=== PATIENT | male | born 1950 | race Caucasian/White ===

== ENCOUNTER → 2019-11-29 16:08 | Outpatient (CLI) | payer MEDICARE, SELFPAY ==
[2019-11-29 17:43] LABS: Absolute Lymphocyte Count 2.48 X10^3/uL (0.83-4.51); Absolute Neutrophil Count 3.7 X10^3/uL (2.0-7.7); Basophil# 0.03 X10^3/uL; Basophil% 0.4 % (0-1); Eosinophil# 0.23 X10^3/uL; Eosinophils% 3.3 % (0-5); Hematocrit 39.7 % (40-54); Lymphocyte # 2.48 X10^3/ul (4.0); Lymphocyte % 35.3 % (19-41); Mean Corp Hgb Conc 32.7 g/dL (32-36); Mean Corpuscular Hgb 28.2 pg (27.0-32.0); Mean Corpuscular Volume 86.1 fL (80-94); Mean Platelet Vol. 11.1 fl (6.2-12.0); Monocyte# 0.56 X10^3/uL; NRBC Flagged by Analyzer 0 % (0-5); Neutrophil % 52.7 % (47-70); Platelet Count 128 K/mm3 (150-450); RBC Distribution Width CV 13.2 % (11.6-14.6); RBC Distribution Width SD 41.2 fl (35.1-43.9); Red Blood Count 4.61 M/mm3 (4.6-6.2)
[2019-11-29 17:56] LABS: Hemoglobin A1c 7.7 % (4.2-6.3); Vitamin B12 712 pg/mL (211-911)
[2019-11-29 18:03] LABS: ALB/GLOB Ratio 1.1 RATIO (0.9-2.4); AST(SGOT) 18 U/L (15-37); Alanine Aminotransfer ALT/SGPT 29 U/L (16-61); Albumin, Serum 3.8 g/dL (3.2-5.0); Alkaline Phosphatase 80 U/L (45-117); Anion Gap 2 (5-15); BUN 18 mg/dL (7-18); BUN/Creat Ratio 15.1 RATIO (10-20); Calcium,Total 8.9 mg/dL (8.5-10.1); Chloride 107 mmol/L (98-107); Creatinine, Serum 1.19 mg/dL (0.70-1.30); EST Glomerular Filtration Rate 64 mL/min (>60); Est Glom Filt Rate - Afr Amer 78 mL/min (>60); Ferritin 142 ng/mL (26-388); Globulin 3.5 g/dL (2.2-4.2); Glucose 171 mg/dL (74-106); Potassium 4.3 mmol/L (3.5-5.1); Protein, Total 7.3 g/dL (6.4-8.2); Sodium Level 137 mmol/L (136-145); Thyroid Stim Hormone (TSH) 2.13 uIU/mL (0.358-3.74)
== END ==
PROVIDERS: PCP Family Medicine; Referring Provider Family Medicine; Visit Provider Family Medicine
DX: E11.9 Type 2 diabetes mellitus without complications (principal); I38 Endocarditis, valve unspecified; D64.9 Anemia, unspecified
CPT/HCPCS: 36415; 80053; 82607; 82728; 83036; 84443; 85025

== ENCOUNTER → 2019-12-11 12:32 | Outpatient (CLI) | payer MEDICARE, SELFPAY ==
--- NOTE | 2019-12-11 12:48 | ART_ITS ---
Reason For Study: Atherosclerosis Procedure A bilateral lower extremity continuous wave Doppler with analog waveform analysis and ankle brachial indexes. Left Segmental Pressures Left brachial= 149mmHg. Left posterior tibial artery = 161mmHg. Left dorsalis pedis artery = 149mmHg. Left digit = 129 mmHg. The left dorsalis pedis waveforms are triphasic. The left posterior tibial artery waveforms are triphasic. Right Segmental Pressures Right brachial= 144mmHg. Right posterior tibial artery = 156mmHg. Right dorsalis pedis artery = 146mmHg. Right digit = 112 mmHg. The right dorsalis pedis waveforms are triphasic. The right posterior tibial artery waveforms are triphasic. Indices The right ankle brachial index by the dorsalis pedis is 0.98. The right ankle brachial index by the posterior tibial artery is 1.05. The right digital-brachial index is 0.75. The left ankle brachial index by the dorsalis pedis is 1.00. The left ankle brachial index by the posterior tibial artery is 1.08. The left digital-brachial index is 0.87. Interpretation Summary Triphasic Doppler waveforms are noted at ankle level bilaterally. Pulse-volume recordings appear satisfactory at ankle and digital levels bilaterally. Resting ankle-brachial indices are normal bilaterally. Digital-brachial indices are normal bilaterally. The patient was exercised for 5 minutes at 1.5 mph and a 5% grade. One minute following cessation of exercise, the right ankle pressure decreased slightly, but was noted to augment 3 minutes following cessation of exercise. On the left, ankle pressures augment 1 and 3 minutes following cessation of exercise, which is a normal physiological result. There is no evidence of significant arterial occlusive disease in the lower extremities bilaterally. Ordering Physician: Hao Woods Referring Physician: Hao Woods Performed By: Lexie Vo RVT
== END ==
PROVIDERS: PCP Family Medicine; Referring Provider Family Medicine; Visit Provider Family Medicine
DX: I73.9 Peripheral vascular disease, unspecified (principal)
CPT/HCPCS: 93922

== ENCOUNTER 2022-01-01 11:54 | Outpatient (CLI) | payer MEDICARE, SELFPAY ==
[2022-01-01 15:42] LABS: ALB/GLOB Ratio 1.2 RATIO (0.9-2.4); AST(SGOT) 20 U/L (15-37); Alanine Aminotransfer ALT/SGPT 22 U/L (16-61); Albumin, Serum 3.9 g/dL (3.2-5.0); Alkaline Phosphatase 69 U/L (45-117); Anion Gap 4 (5-15); BUN 29 mg/dL (7-18); BUN/Creat Ratio 26.4 RATIO (10-20); Calcium,Total 9.3 mg/dL (8.5-10.1); Chloride 106 mmol/L (98-107); Cholesterol 292 mg/dL (200); EST Glomerular Filtration Rate 70 mL/min (>60); Est Glom Filt Rate - Afr Amer 85 mL/min (>60); Globulin 3.3 g/dL (2.2-4.2); Glucose 134 mg/dL (74-106); High Density Lipoprotein 49 mg/dL; Potassium 5.2 mmol/L (3.5-5.1); Protein, Total 7.2 g/dL (6.4-8.2); Sodium Level 137 mmol/L (136-145); Triglycerides 199 mg/dL; Very Low Density Lipoprotein 40 mg/dL (5-40)
[2022-01-01 15:44] LABS: Hemoglobin A1c 8.6 % (3.8-5.6)
== END 2022-01-01 23:59 | disposition home or self-care (01) ==
LOC: MFPLAB 11:57
PROVIDERS: PCP Family Medicine; Referring Provider Family Medicine; Visit Provider Family Medicine
DX: E11.9 Type 2 diabetes mellitus without complications (principal); I70.90 Unspecified atherosclerosis
CPT/HCPCS: 36415; 80053; 80061; 83036

== ENCOUNTER → 2022-07-02 | Outpatient (CLI) | payer MEDICARE, SELFPAY ==
--- NOTE | 2022-07-02 16:13 | STRESSREP ---
Stress Test Report Exercise myocardial perfusion stress test. 71-year-old man with a history of coronary disease aortic valve replacement mitral valve repair. Stress protocol: Resting EKG demonstrates normal sinus rhythm with a rate of 63 bpm normal intervals are noted resting blood pressure is 142/88 mmHg. The patient exercised according to regular Andre protocol for 2 minutes and 43 seconds attaining a maximal heart rate of 129 bpm and 87% of max impacted heart rate the maximum workload was 4.6 metabolic equivalents. Patient maintained sinus rhythm throughout the recording. At rest there were no ST or T wave changes noted suggest ischemia and at peak exercise upsloping ST changes only were noted with did not meet the criteria for ischemia. The test was terminated due to fatigue. Myocardial perfusion protocol. 11.5 mCi of technetium 99m sestamibi was injected at rest. The patient exercised according to the regular Andre protocol and at peak exercise 34.2 mCi of technetium 99m sestamibi was injected stress images were obtained stress and rest images were reconstructed and compared in the short axis vertical long and horizontal long axis. Gated images were also obtained.
== END | disposition home or self-care (01) ==
LOC: CVS 06:53
PROVIDERS: PCP Family Medicine; Referring Provider Nurse Practitioner Family; Visit Provider Nurse Practitioner Family
DX: I25.2 Old myocardial infarction (principal); Z95.1 Presence of aortocoronary bypass graft; Z95.4 Presence of other heart-valve replacement; Z98.890 Other specified postprocedural states
CPT/HCPCS: 78452; 93017; A9500

== ENCOUNTER → 2022-08-07 | Outpatient (CLI) | payer MEDICARE, SELFPAY ==
[2022-08-07 12:32] LABS: Bacteria 0 SEEN /hpf (None Seen); Mucous, Urine 0 SEEN /hpf (<or=2+); Red Blood Cells-Urine 0 SEEN /hpf (0-5); Squamous Epithelial Cells - UA 0 SEEN /hpf (0-5); White Blood Cells 0 SEEN /hpf (0-5)
[2022-08-07 15:43] LABS: Absolute Lymphocyte Count 2.14 X10^3/uL (0.83-4.51); Absolute Neutrophil Count 4.6 X10^3/uL (2.0-7.7); Basophil# 0.04 X10^3/uL; Basophil% 0.5 % (0-1); Eosinophil# 0.19 X10^3/uL; Eosinophils% 2.5 % (0-5); Hematocrit 41.7 % (40-54); Hemoglobin 13.9 g/dL (13.0-16.5); Lymphocyte # 2.14 X10^3/ul (0.83-4.51); Lymphocyte % 28.6 % (19-41); Mean Corp Hgb Conc 33.3 g/dL (32-36); Mean Corpuscular Hgb 29.3 pg (27.0-32.0); Mean Corpuscular Volume 87.8 fL (80-94); Mean Platelet Vol. 11.4 fl (6.2-12.0); Monocyte% 6.7 % (0-10); NRBC Flagged by Analyzer 0 % (0-5); Neutrophil # 4.57 X10^3/uL (2.7-7.7); Neutrophil % 61.3 % (47-70); Platelet Count 145 K/mm3 (150-450); RBC Distribution Width CV 13.8 % (11.6-14.6); RBC Distribution Width SD 44.1 fl (35.1-43.9); Red Blood Count 4.75 M/mm3 (4.6-6.2); White Blood Count 7.5 K/mm3 (4.4-11.0)
[2022-08-07 16:03] LABS: Color, Urine Yellow (Yellow); Glucose, Dipstick Normal (Normal); Ketone-Dipstick Negative (Negative); Leukocyte Esterase-Dipstick Negative /ul (Negative); Nitrite-Dipstick Negative (Negative); Occult Blood-Urine Negative /ul (Negative); Protein-Dipstick 30 mg/dl (Negative); Urine Bilirubin Dipstick Negative (Negative); Urine Clarity Clear (Clear); Urine Urobilinogen Normal (Normal)
[2022-08-07 16:23] LABS: Transitional Epithelial - Ur 0-5 SEEN /hpf (0-5)
[2022-08-07 17:53] LABS: ALB/GLOB Ratio 1.2 RATIO (0.9-2.4); AST(SGOT) 17 U/L (15-37); Alanine Aminotransfer ALT/SGPT 23 U/L (16-61); Albumin, Serum 4.3 g/dL (3.2-5.0); Alkaline Phosphatase 75 U/L (45-117); Anion Gap 6 (5-15); BUN 25 mg/dL (7-18); BUN/Creat Ratio 18.4 RATIO (10-20); Calcium,Total 9.9 mg/dL (8.5-10.1); Chloride 106 mmol/L (98-107); Creatinine, Serum 1.36 mg/dL (0.70-1.30); EST Glomerular Filtration Rate 55 mL/min (>60); Est Glom Filt Rate - Afr Amer 66 mL/min (>60); Globulin 3.6 g/dL (2.2-4.2); Glucose 169 mg/dL (74-106); Potassium 5.1 mmol/L (3.5-5.1); Protein, Total 7.9 g/dL (6.4-8.2); Sodium Level 138 mmol/L (136-145)
== END | disposition home or self-care (01) ==
LOC: MFPLAB 12:26
PROVIDERS: PCP Family Medicine; Referring Provider Family Medicine; Visit Provider Family Medicine
DX: E11.29 Type 2 diabetes mellitus with other diabetic kidney complication (principal); I38 Endocarditis, valve unspecified
CPT/HCPCS: 36415; 80053; 81001; 85025

== ENCOUNTER → 2022-12-11 | Outpatient (CLI) | payer MEDICARE, SELFPAY ==
--- NOTE | 2022-12-11 11:00 | RAD_ITS ---
STUDY: X-RAY CHEST REASON FOR EXAM: Male, 72 years old. produtive cough TECHNIQUE: PA and lateral views of the chest. COMPARISON: None. FINDINGS: The lungs are clear and expanded. There is no demonstrated pleural abnormality. Normal size heart. Sternal wires and prostatic cardiac valves. Normal visualized pulmonary arteries. There is atherosclerotic calcification of the aortic arch with tortuosity. There is demineralization of the osseous structures. Normal visualized ribs, clavicles, and shoulders. There is no demonstrated abnormality of the visualized soft tissue structures of the upper abdomen. RAD/Chest PA and Lateral IMPRESSION: No acute cardiopulmonary process. Electronically Signed: Gulshan Hutson (Brooks), at 18:31 EST ,
== END | disposition home or self-care (01) ==
LOC: MTRAD 11:00
PROVIDERS: PCP Family Medicine; Referring Provider Family Medicine; Visit Provider Family Medicine
DX: R05.8 Other specified cough (principal)
CPT/HCPCS: 71046

== ENCOUNTER → 2023-01-14 | Outpatient (CLI) | payer MEDICARE, SELFPAY ==
[2023-01-14 12:38] LABS: Erythrocyte Sedimentation Rate 18 mm/hr (0-20)
[2023-01-14 12:42] LABS: Absolute Lymphocyte Count 1.72 X10^3/uL (0.83-4.51); Absolute Neutrophil Count 5.1 X10^3/uL (2.0-7.7); Basophil# 0.03 X10^3/uL; Basophil% 0.4 % (0-1); Eosinophil# 0.22 X10^3/uL; Eosinophils% 2.9 % (0-5); Hematocrit 36.9 % (40-54); Hemoglobin 12.2 g/dL (13.0-16.5); Lymphocyte # 1.72 X10^3/ul (0.83-4.51); Lymphocyte % 22.4 % (19-41); Mean Corp Hgb Conc 33.1 g/dL (32-36); Mean Corpuscular Volume 87.6 fL (80-94); Mean Platelet Vol. 11.4 fl (6.2-12.0); Monocyte# 0.57 X10^3/uL; Monocyte% 7.4 % (0-10); NRBC Flagged by Analyzer 0 % (0-5); Neutrophil # 5.11 X10^3/uL (2.7-7.7); Neutrophil % 66.5 % (47-70); Platelet Count 128 K/mm3 (150-450); RBC Distribution Width CV 13.7 % (11.6-14.6); RBC Distribution Width SD 43.8 fl (35.1-43.9); Red Blood Count 4.21 M/mm3 (4.6-6.2); White Blood Count 7.7 K/mm3 (4.4-11.0)
[2023-01-14 13:11] LABS: AST(SGOT) 13 U/L (15-37); Alanine Aminotransfer ALT/SGPT 19 U/L (16-61); Albumin, Serum 3.7 g/dL (3.2-5.0); Alkaline Phosphatase 92 U/L (45-117); Anion Gap 6 (5-15); BUN 20 mg/dL (7-18); CRP < 2.90 mg/L (0.0-3.0); Calcium,Total 9.7 mg/dL (8.5-10.1); Chloride 100 mmol/L (98-107); Creatinine, Serum 1.33 mg/dL (0.70-1.30); EST Glomerular Filtration Rate 56 mL/min (>60); Est Glom Filt Rate - Afr Amer 68 mL/min (>60); Globulin 3.6 g/dL (2.2-4.2); Glucose 309 mg/dL (74-106); Potassium 4.9 mmol/L (3.5-5.1); Protein, Total 7.3 g/dL (6.4-8.2); Sodium Level 134 mmol/L (136-145)
[2023-01-15 13:13] LABS: ANTINUCLEAR ANTIBODIES DIRECT Negative (Negative)
[2023-01-16 15:07] LABS: QNTFERON TB Mitogen Value > 10.00 IU/mL (.); QNTFERON TB Nil Value 0 IU/mL (.); QNTFERON TB1+ Ag Value 0.03 IU/mL (.); QNTFERON TB2+ Ag Value 0.02 IU/mL (.)
[2023-01-16 16:06] LABS: QNTIFERON TB Positive Criteria Negative (Negative)
== END | disposition home or self-care (01) ==
LOC: MFPLAB 10:13
PROVIDERS: PCP Family Medicine; Referring Provider Family Medicine; Visit Provider Family Medicine
DX: R04.2 Hemoptysis (principal); R29.2 Abnormal reflex
CPT/HCPCS: 36415; 80053; 85025; 85652; 86038; 86140; 86225; 86235; 86480; 87015; 87070; 87116; 87205; 87206

== ENCOUNTER → 2023-01-29 | Outpatient (CLI) | payer MEDICARE, SELFPAY ==
--- NOTE | 2023-01-29 12:54 | ECHOD_ITS ---
Reason For Study: AORTIC STENOSIS Procedure This was a 2D Doppler, Color Flow transthoracic echocardiogram. Exam performed in department. Left Ventricle Normal LV size. Mild concentric left ventricular hypertrophy. The left ventricular ejection fraction is 65 %. Diastolic function is indeterminate. Right Ventricle Normal right ventricle. Atria The left atrium is severely enlarged. Normal right atrium. Mitral Valve Mitral valve annuloplasty repair. Trivial mitral valve insufficiency. Tricuspid Valve Trivial tricuspid valve insufficiency. Unable to estimate RV systolic pressure due to insufficient tricuspid regurgitant envelope. Aortic Valve Bioprosthetic Aortic valve. Mean peak gradient 30.8 mm Hg. Moderate stenosis. Pulmonic Valve The pulmonic valve is not well visualized. Great Vessels Normal sized aortic root. Pericardium/Pleural No pericardial effusion. MMode/2D Measurements & Calculations LVIDd: 4.2 cm IVSd: 1.3 cm LVOT diam: 2.2 cm LVIDs: 2.8 cm LVPWd: 1.2 cm LVOT area: 3.7 cm2 FS: 33.2 % Ao root diam: 3.5 cm LAV(MOD-bp): 61.4 ml LVAd ap4: 25.3 cm2 LAV(MOD-bp) Indexed: 29.6 ml/m2 LVLd ap4: 7.3 cm LAV(MOD-sp2): 58.0 ml EDV(MOD-sp4): 75.6 ml LAV(MOD-sp4): 56.7 ml EDV(sp4-el): 74.6 ml LVAs ap4: 12.8 cm2 LVLs ap4: 6.0 cm ESV(MOD-sp4): 23.9 ml ESV(sp4-el): 23.1 ml EF(MOD-sp4): 68.4 % EF(sp4-el): 69.0 % SV(MOD-sp4): 51.7 ml SV(sp4-el): 51.5 ml LA A4 area: 20.3 cm2 LA dimension(2D): 4.5 cm RA A4 area: 20.4 cm2 Time Measurements MV dec time: 0.30 sec Doppler Measurements & Calculations MV E max brad: 120.0 cm/sec Lat Peak E' Brad: 7.8 cm/sec Med Peak E' Brad: 7.7 cm/sec MV A max brad: 79.4 cm/sec E/E' lat: 15.4 E/E' med: 15.6 MV E/A: 1.5 MV V2 max: 136.9 cm/sec Ao V2 max: 359.6 cm/sec MV max P.5 mmHg MV dec slope: 397.9 cm/sec2 Ao max P.7 mmHg MV V2 mean: 87.8 cm/sec Ao V2 mean: 260.8 cm/sec MV mean P.4 mmHg Ao mean P.8 mmHg MV V2 VTI: 46.1 cm Ao V2 VTI: 71.1 cm AV (velocity ratio): 0.41 MVA(VTI): 2.3 cm2 NEGRA(I,D): 1.5 cm2 NEGRA(V,D): 1.3 cm2 LV V1 max: 128.2 cm/sec SV(LVOT): 106.1 ml PA V2 max: 90.2 cm/sec LV V1 max P.7 mmHg PA V2 mean: 61.9 cm/sec LV V1 mean P.0 mmHg LV V1 mean: 75.4 cm/sec LV V1 VTI: 28.9 cm ECHO/Echo Complete Interpretation Summary Mild concentric left ventricular hypertrophy. Diastolic function is indeterminate. The left atrium is severely enlarged. Bioprosthetic Aortic valve not well visualized. Mean peak gradient 30.8 mm Hg. Moderate stenosis. Ordering Physician: Hao Woods Referring Physician: Hao Woods Performed By: Alondra Moore RCS
--- NOTE | 2023-01-29 13:27 | CT_ITS ---
ACR Level 3 findings have been noted. An addendum which confirms receipt of the report will follow. EXAM: CT CHEST WITHOUT INTRAVENOUS CONTRAST CLINICAL INDICATION: productive sputum w/ hemoptysis TECHNIQUE: Helically acquired images were obtained of the chest without intravenous contrast. CTDIvol = ( 8.89 ) mGy, DLP = ( 335.84 ) mGycm This CT exam was performed using one or more of the following dose reduction techniques: automated exposure control, adjustment of the mA and/or kV according to patient size, and/or use of iterative reconstruction technique. This report was created using [employer] report [email or web address] technology. COMPARISON: None. FINDINGS: LUNGS AND PLEURAL SPACES: 1.2 cm cavitary lesion at the posterior aspect of the left upper lobe. Spiculated rounded mass at the nearby left upper lobe measuring 1.2 cm. No other pulmonary lesions or significant airspace disease. No pleural effusion or pneumothorax. Background of mild centrilobular emphysema. Couple of small calcified granulomas at the medial aspect of the right upper lobe. HEART: Multivessel calcific coronary arteriolosclerosis status post CABG. No cardiomegaly or pleural effusion. No aortic aneurysm. No other cardiomediastinal or hilar abnormalities. MEDIASTINUM: See above. THYROID: Unremarkable. No thyroid lesions. BONES/JOINTS: Degenerative changes of the spine. No unusual lytic or sclerotic lesions of bone. VASCULATURE: See above. GALLBLADDER AND BILE DUCTS: Cholelithiasis although the gallbladder is incompletely imaged. No definite acute cholecystitis. Small calcified granuloma of the spleen. OTHER FINDINGS: No other upper abdominal abnormalities. CT/Chest without Contrast IMPRESSION: 1. 1.2 cm cavitary lesion at the posterior aspect of the left upper lobe. Favor infectious or inflammatory etiology. TB is not excluded. 2. Spiculated rounded mass at the nearby left upper lobe measuring 1.2 cm. Tumor is not excluded. Consider PET/CT for investigation. Alternatively this could also represent a focus of infection. Electronically Signed: Raciel Gold MD at 2:57 EDT ,
== END | disposition home or self-care (01) ==
LOC: CVS 12:52
PROVIDERS: PCP Family Medicine; Referring Provider Family Medicine; Visit Provider Family Medicine
DX: I35.0 Nonrheumatic aortic (valve) stenosis (principal); R05.8 Other specified cough; R06.02 Shortness of breath
CPT/HCPCS: 71250; 93306

== ENCOUNTER → 2023-02-10 | Outpatient (CLI) | payer MEDICARE, SELFPAY ==
--- NOTE | 2023-02-10 14:24 | RAD_ITS ---
STUDY: X-RAY CHEST REASON FOR EXAM: Male, 72 years old. COUGH TECHNIQUE: Frontal and lateral views of the chest. COMPARISON: December 11, 2022. FINDINGS: There is mild left upper lung increased opacity with infiltrate and/or mass. There is no demonstrated pleural abnormality. Sternal cerclage wires are present from a prior sternotomy. There is valve replacement. Normal mediastinum and dima. Normal visualized pulmonary arteries. Normal visualized aortic arch and descending thoracic aorta. There are diffuse degenerative changes of the visualized thoracic spine. Stable healed right fifth rib fracture. There is no demonstrated abnormality of the visualized soft tissue structures of the upper abdomen. RAD/Chest PA and Lateral IMPRESSION: Left upper lung infiltrate and/or mass. Electronically Signed: Terrell Frias MD at 23:53 EDT ,
[2023-02-10 16:48] LABS: Amylase 78 U/L (25-115); Lipase 54 U/L (13-75); PSA,Total - Annual Screen 1.98 ng/mL (0.00-4.00)
== END | disposition home or self-care (01) ==
LOC: MTLAB 14:21
PROVIDERS: PCP Family Medicine; Referring Provider Internal Medicine Pulmonary Disease; Visit Provider Internal Medicine Pulmonary Disease
DX: R05.9 Cough, unspecified (principal)
CPT/HCPCS: 36415; 71046; 82150; 83690; 84153; 87385; G0103

== ENCOUNTER → 2023-02-13 | Outpatient (CLI) | payer MEDICARE, SELFPAY | END | disposition home or self-care (01) | LOC: LABSPEC 10:59 | PROVIDERS: PCP Family Medicine; Referring Provider Internal Medicine Pulmonary Disease; Visit Provider Internal Medicine Pulmonary Disease | DX: R05.9 Cough, unspecified (principal) | CPT/HCPCS: 87015; 87070; 87116; 87205; 87206 ==

== ENCOUNTER → 2023-02-25 | Outpatient (CLI) | payer MEDICARE, SELFPAY ==
--- NOTE | 2023-02-25 12:53 | RAD_ITS ---
STUDY: X-RAY CHEST REASON FOR EXAM: Male, 72 years old. Solitary pulmonary nodule TECHNIQUE: PA and lateral views of the chest. COMPARISON: February 10, 2023 FINDINGS: There is stable mild left upper lung increased opacity. There is no demonstrated pleural abnormality. Sternal cerclage wires and vascular clips are present from a prior sternotomy and coronary artery bypass graft procedure (CABG). There is valve replacement. Normal mediastinum and dima. Normal visualized pulmonary arteries. Normal visualized aortic arch and descending thoracic aorta. Normal visualized thoracic spine. Normal visualized ribs, clavicles, and shoulders. There is no demonstrated abnormality of the visualized soft tissue structures of the upper abdomen. RAD/Chest PA and Lateral IMPRESSION: Stable left upper lobe infiltrate and/or mass. Consider bronchoscopy and/or PET/CT for further evaluation. Electronically Signed: Terrell Frias MD at 22:19 EDT ,
== END | disposition home or self-care (01) ==
LOC: MTRAD 12:52
PROVIDERS: PCP Family Medicine; Referring Provider Internal Medicine Pulmonary Disease; Visit Provider Internal Medicine Pulmonary Disease
DX: R91.1 Solitary pulmonary nodule (principal)
CPT/HCPCS: 71046

== ENCOUNTER → 2023-03-03 | Outpatient (CLI) | payer MEDICARE, SELFPAY ==
--- NOTE | 2023-03-03 | SPU_PTH ---
PATIENT: SILVINA HORVATH LOC: LAB U#:[id number] AGE/SX: 72/M ROOM: RE03/03/[address]: Dr. Aneesh Alaniz MD : 1950 BED: DIS: 03/03/2023 SPEC #: [id number] RECD: 03/04/23 09:33 STATUS: ANNIE RETee #: [id number] HENRY: 03/03/23 00:[address]: Aneesh Alaniz V DEPT: CYTOLOGY RECD BY: Amberly Hay ENTERED: 03/04/23 09:34 SP TYPE: Sputum Cy OTHR DR: Dr. Hao Woods MD Tissues: Sputum Procedures: Pap Stain (control) Special Stain Group II Special Stain Group I AFB Stain (control) Cytospin Fluid HEADER OPERATION: Not noted PRE-OP DIAGNOSIS: Hematemesis, Lung disorder TISSUE SUBMITTED: Sputum for cytology DIAGNOSIS CYTOLOGY Sputum for cytology (cytospin and smears): Negative for malignant cells. See comment. SJ:alfred 03/04/2023 COMMENT Special stain for acid fast bacilli is negative for organisms; matched control is appropriate. CYTOLOGY STUDY Slides are reviewed. CYTOLOGY GROSS Received is 1 ml of red cloudy fluid labeled with the patient's name and and designated per the requisition as sputum. Submitted for cytology preparation. / alfred 03/03/2023 TC:5 CPT: 74674, 71858
== END | disposition home or self-care (01) ==
LOC: LAB 10:10
PROVIDERS: PCP Family Medicine; Referring Provider Internal Medicine Pulmonary Disease; Visit Provider Internal Medicine Pulmonary Disease
DX: R04.2 Hemoptysis (principal); J98.4 Other disorders of lung
CPT/HCPCS: 87070; 87205; 88108; 88312; 88313

== ENCOUNTER → 2023-03-16 | Outpatient (CLI) | payer MEDICARE, SELFPAY ==
[2023-03-16 15:23] LABS: Absolute Lymphocyte Count 2.25 X10^3/uL (0.83-4.51); Absolute Neutrophil Count 7.8 X10^3/uL (2.0-7.7); Basophil# 0.05 X10^3/uL; Basophil% 0.4 % (0-1); Eosinophil# 0.35 X10^3/uL; Eosinophils% 3.1 % (0-5); Hematocrit 36.7 % (40-54); Hemoglobin 11.4 g/dL (13.0-16.5); Lymphocyte # 2.25 X10^3/ul (0.83-4.51); Lymphocyte % 19.9 % (19-41); Mean Corp Hgb Conc 31.1 g/dL (32-36); Mean Corpuscular Hgb 27.3 pg (27.0-32.0); Mean Platelet Vol. 10.1 fl (6.2-12.0); Monocyte# 0.81 X10^3/uL; Monocyte% 7.2 % (0-10); NRBC Flagged by Analyzer 0 % (0-5); Neutrophil # 7.79 X10^3/uL (2.7-7.7); Neutrophil % 68.9 % (47-70); Platelet Count 193 K/mm3 (150-450); RBC Distribution Width CV 14.1 % (11.6-14.6); RBC Distribution Width SD 45.1 fl (35.1-43.9); Red Blood Count 4.17 M/mm3 (4.6-6.2); White Blood Count 11.3 K/mm3 (4.4-11.0)
[2023-03-16 16:04] LABS: Anion Gap 4 (5-15); BUN 25 mg/dL (7-18); Calcium,Total 9.6 mg/dL (8.5-10.1); Chloride 109 mmol/L (98-107); Creatinine, Serum 1.25 mg/dL (0.70-1.30); EST Glomerular Filtration Rate 60 mL/min (>60); Est Glom Filt Rate - Afr Amer 73 mL/min (>60); Glucose 96 mg/dL (74-106); Potassium 4.7 mmol/L (3.5-5.1); Sodium Level 139 mmol/L (136-145); Thyroid Stim Hormone (TSH) 1.27 uIU/mL (0.358-3.74)
[2023-03-16 16:05] LABS: BNP,B-Type NATRIURETIC PEPTIDE 175.7 pg/mL (0-100)
== END | disposition home or self-care (01) ==
LOC: LAB 14:52
PROVIDERS: PCP Family Medicine; Referring Provider Physician Assistant Medical; Visit Provider Physician Assistant Medical
DX: R06.09 Other forms of dyspnea (principal); Z98.890 Other specified postprocedural states; R07.9 Chest pain, unspecified; G50.1 Atypical facial pain; E78.5 Hyperlipidemia, unspecified
CPT/HCPCS: 36415; 80048; 83880; 84443; 85025

== ENCOUNTER → 2023-03-25 | Outpatient (CLI) | payer MEDICARE, SELFPAY ==
--- NOTE | 2023-03-25 13:03 | RAD_ITS ---
STUDY: X-RAY CHEST REASON FOR EXAM: Male, 72 years old. Follow-up of pulmonary nodule. TECHNIQUE: Frontal and lateral views of the chest. COMPARISON: February 25, 2023. FINDINGS: Stable cardiomegaly, sternotomy wires, valve replacement and changes of coronary artery bypass grafting. Mild hyperinflation with patchy opacity projected over the left upper lobe adjacent to the proximal descending aorta. For this lesion appears to be slightly more prominent than on the prior study. Chest CT with contrast further evaluating this would be appropriate. Diffuse moderate thoracic spondylosis. No abnormality of the visualized soft tissue structures of the upper abdomen. RAD/Chest PA and Lateral IMPRESSION: Slightly prominent left upper lobe opacity compared to the prior study. Chest CT with contrast would be an appropriate next study to further evaluate this finding. Electronically Signed: Yves Newton MD at 13:22 EDT ,
== END | disposition home or self-care (01) ==
PROVIDERS: PCP Family Medicine; Referring Provider Internal Medicine Pulmonary Disease; Visit Provider Internal Medicine Pulmonary Disease
DX: R91.1 Solitary pulmonary nodule (principal); J98.4 Other disorders of lung
CPT/HCPCS: 71046; 87385

== ENCOUNTER 2023-04-05 16:47 | Emergency (ER) | payer MEDICARE, SELFPAY ==
[2023-04-05 16:48] VITALS: BP 118/60; PULSE 73; RESP 18; TEMP 36.3; O2SAT 96; BMI 27.3
[2023-04-05 17:03] VITALS: BP 142/68; PULSE 73; RESP 19; O2SAT 95; O2SAT 96
--- NOTE | 2023-04-05 17:18 | EKG12_ITS ---
Test Reason : Blood Pressure : / mmHG Vent. Rate : 074 BPM Atrial Rate : 074 BPM P-R Int : 168 ms QRS Dur : 102 ms QT Int : 372 ms P-R-T Axes : 075 038 064 degrees QTc Int : 412 ms Normal sinus rhythm Normal ECG Confirmed by EDDI PACE, ANTOLIN ([id number]), editor greeting card KEVIN HILLMAN ([id number]) on 04/07/2023 11:22:31 AM Referred By: PC Confirmed By:ANTOLIN MONTAGUE MD
--- NOTE | 2023-04-05 17:24 | NURSING ---
NO OLD EKGS
--- NOTE | 2023-04-05 17:45 | RAD_ITS ---
STUDY: X-RAY CHEST REASON FOR EXAM: Male, 72 years old. Chest pain. TECHNIQUE: Single AP portable view of the chest. COMPARISON: March 25, 2023. FINDINGS: There is now slight elevation left hemidiaphragm with left basilar atelectasis. There is persistent density in the medial left upper lobe unchanged from previous examination. Lungs are otherwise clear. There is no demonstrated pleural abnormality. The heart is normal in size. Again seen is evidence of cardiac valvuloplasty. Normal mediastinum and dima. Normal visualized pulmonary arteries. Normal visualized aortic arch and descending thoracic aorta. The thoracic spine is obscured by the mediastinum. There is degenerative osteoarthritis of the bilateral shoulders. There is no demonstrated abnormality of the visualized soft tissue structures of the upper abdomen. RAD/Chest 1 View (Portable) IMPRESSION: 1. Elevation left hemidiaphragm with mild left basilar atelectasis. The remainder of the findings are unchanged. Electronically Signed: Agus Tilley DO at 18:02 EDT ,
[2023-04-05 17:51] LABS: Absolute Lymphocyte Count 1.43 X10^3/uL (0.83-4.51); Absolute Neutrophil Count 8.7 X10^3/uL (2.0-7.7); Basophil# 0.04 X10^3/uL; Basophil% 0.4 % (0-1); Eosinophil# 0.27 X10^3/uL; Eosinophils% 2.4 % (0-5); Hematocrit 35.4 % (40-54); Hemoglobin 10.8 g/dL (13.0-16.5); Lymphocyte # 1.43 X10^3/ul (0.83-4.51); Lymphocyte % 12.6 % (19-41); Mean Corp Hgb Conc 30.5 g/dL (32-36); Mean Corpuscular Hgb 27.2 pg (27.0-32.0); Mean Corpuscular Volume 89.2 fL (80-94); Mean Platelet Vol. 10.4 fl (6.2-12.0); Monocyte# 0.84 X10^3/uL; Monocyte% 7.4 % (0-10); NRBC Flagged by Analyzer 0 % (0-5); Neutrophil # 8.67 X10^3/uL (2.7-7.7); Neutrophil % 76.6 % (47-70); Platelet Count 161 K/mm3 (150-450); RBC Distribution Width CV 14.6 % (11.6-14.6); RBC Distribution Width SD 47.7 fl (35.1-43.9); Red Blood Count 3.97 M/mm3 (4.6-6.2); White Blood Count 11.3 K/mm3 (4.4-11.0)
[2023-04-05 18:08] LABS: Anion Gap 6 (5-15); BUN 26 mg/dL (7-18); Calcium,Total 10.1 mg/dL (8.5-10.1); Chloride 106 mmol/L (98-107); Creatinine, Serum 1.24 mg/dL (0.70-1.30); EST Glomerular Filtration Rate 61 mL/min (>60); Est Glom Filt Rate - Afr Amer 73 mL/min (>60); Estimated Creatinine Clearance 53.06 ml/min; Glucose 160 mg/dL (74-106); Potassium 4.6 mmol/L (3.5-5.1); Sodium Level 138 mmol/L (136-145); Troponin-I HS 11 pg/mL (3.0-78.0)
[2023-04-05 18:17] LABS: BNP,B-Type NATRIURETIC PEPTIDE 136.7 pg/mL (0-100)
[2023-04-05 18:25] LABS: D-Dimer Quantitative (DVT/PE) 0.63 FEU/ug/m (0.27-0.49)
--- NOTE | 2023-04-05 18:30 | EDS_ITS ---
HPI History of Present Illness Chief Complaint: Shortness of Breath Narrative Narrative: 72-year-old male presenting with shortness of breath. He states this has been a long-term issue over the last couple of months. He is also had some left-sided chest pressure. Patient states that last couple of days he has noticed more shortness of breath. He states he was recently referred to Dr. Alaniz from pulmonology. Has been on 2 rounds of antibiotics. He has not quite finished the second round of antibiotics. He denies fever, chills. He does state that he is coughing up sputum. Previously when he was referred to Dr. Alaniz he was having hemoptysis but he no longer has this. [facility] Medical History Anemia Arthritis Atherosclerotic heart disease of [place] coronary artery without angina pectoris Back pain Cardiology follow-up encounter Chronic combined systolic and diastolic CHF (congestive heart failure) Chronic cough COPD (chronic obstructive pulmonary disease) COVID Diabetes Dietary restriction Difficulty swallowing Essential (primary) hypertension Former smoker History of CVA (cerebrovascular accident) History of echocardiogram History of non-ST elevation myocardial infarction (NSTEMI) (06/15/14) History of stress test Hyperlipidemia Ischemic cardiomyopathy Leg cramps Loss of hearing Low iron Nonrheumatic aortic (valve) stenosis Nonrheumatic mitral (valve) insufficiency Paroxysmal atrial fibrillation Prostate disease Prosthetic aortic valve stenosis Shortness of breath on exertion Syncope Wears dentures Wears glasses Home Medications atorvastatin 40 mg tablet (Lipitor) 40 mg PO QHS 06/26/20 [History Last Taken Unknown] coenzyme Q10 100 mg capsule (Co Q-10) 100 mg PO DAILY 06/26/20 [History Last Taken Unknown] metformin 1,000 mg tablet 1,000 mg PO BID 06/26/20 [History Last Taken Unknown] [id number]-[id number] acid 300 mcg-lycopene 600 mcg-lutein 300 mcg tablet (Centrum Silver Ultra Men's) 1 tab PO DAILY 06/26/20 [History Last Taken Unknown] carvedilol 25 mg tablet 25 mg PO BID #180 tabs 08/03/22 [Rx Last Taken Unknown] cholecalciferol (vitamin D3) 125 mcg (5,000 unit) capsule 125 mcg PO DAILY 03/16/23 [History Last Taken Unknown] glipizide 5 mg tablet, extended release 24 hr 10 mg PO DAILY 03/16/23 [History Last Taken Unknown] tadalafil 5 mg tablet 5 mg PO QHS prostate hypertrophy 03/17/23 [History Last Taken Unknown] acetaminophen 325 mg tablet (Tylenol) 650 mg PO Q6H PRN Pain 04/05/23 [History Last Taken Unknown] doxycycline hyclate 100 mg capsule mg 04/05/23 [History Last Taken Unknown] ibuprofen 600 mg tablet 600 mg PO Q8H PRN Pain 04/05/23 [History Last Taken Unknown] Allergy/AdvReac Type Severity Reaction Status Date / Time LORENE Inhibitors Allergy Intermediate renal Verified 04/05/23 16:51 insufficiency amiodarone Allergy Intermediate renal Verified 04/05/23 16:51 insufficiency Family History Grandfather Heart disease Other Cancer Surgical History H/O coronary artery bypass surgery (06/19/14) History of aortic valve replacement with tissue graft (06/19/14) History of arthroscopy of left knee History of cardioversion (02/23/17) History of mitral valve repair (06/19/14) History of right and left heart catheterization (06/15/14) History of right-sided carotid endarterectomy Male circumcision Social History household members: spouse Smoking Status: Former smoker quit date: 06/08/14 pack-years: 77 how long ago did patient quit smoking: October 2017 alcohol intake: current alcohol intake frequency: a few times a month caffeine: Yes Type: coffee Number of servings: 2 ROS ROS ED Constitutional Constitutional ED: Denies chills Eyes Eyes: Denies change in vision or diplopia ENT ENT ED: Denies rhinorrhea or sore throat Cardiovascular Cardiovascular: Denies chest pain Respiratory/Chest Respiratory/Chest: Reports cough and dyspnea on exertion Gastrointestinal Gastrointestinal: Denies abdominal pain, nausea or vomiting Genitourinary Genitourinary ED: Denies dysuria or hematuria Musculoskeletal Musculoskeletal: Denies arthralgias Integumentary Denies abscess Neurologic Neurologic: Denies headache(s) or paresthesias Psychiatric Psychiatric: Denies anxiety or depression EXAM Physical Exam Const Vital Signs: 04/05/23 16:48 04/05/23 17:03 04/05/23 17:03 Temperature 97.4 F L Temperature Source Temporal Pulse Rate 73 73 Respiratory Rate 18 19 H Respiratory Effort Short of Breath Labored Respiratory Depth Normal Blood Pressure 118/60 142/68 H Blood Pressure Mean 79 92 Pulse Ox 96 96 Oxygen Delivery Method Room Air Room Air Room Air 04/05/23 17:40 04/05/23 18:49 Temperature Temperature Source Pulse Rate 89 Respiratory Rate 20 H Respiratory Effort Respiratory Depth Blood Pressure Blood Pressure Mean Pulse Ox 97 Oxygen Delivery Method Room Air Room Air Positive well nourished General Appearance ED: NAD; Negative for pallor HEENT Reports moist mucous membranes Eyes PERRL and EOMs intact bilaterally Neck no lymphadenopathy and supple Resp normal respiratory effort and clear to auscultation bilaterally Auscultation: Negative for rales, rhonchi or wheezes Cardio regular rate and regular rhythm GI non-tender Neuro oriented x3 and CN's II-XII intact bilaterally Sensorium / Orientation: alert Motor Exam: strength 5/5 throughout Psych mental status grossly normal Skin General Skin Exam: Negative for jaundice or pallor MDM MDM MDM Narrative Medical decision making narrative: 72-year-old male presenting with shortness of breath which has been going on for months states that he had some chest pain on the left upper chest wall which radiates to his left shoulder and this has been ongoing as well. He has been referred to Dr. Alaniz. He supposed to get what sounds like a bronchoscopy in a few days but feels like he is too short of breath to wait for this. His vital signs are stable and he is afebrile. He is not hypoxic. His oxygen is 96% on room air. He is well-appearing. He is speaking in full sentences. Differential includes but is not limited to ACS, PE, pneumonia, pneumothorax, muscle strain, costochondritis, CHF, anemia, GI bleed. CBC shows minimal leukocytosis 11.3. Hemoglobin 10.8. This appears to drop from 12.2 over the last couple of months. Patient was offered occult stool testing but he declines. He states he has not had any black or bloody stools. I think he has the capacity to make this decision. His vital signs have remained stable. He was ambulated in the coelho and maintain sats of 96%. BNP came back at 136. Chest x-ray on my interpretation shows no acute process. The radiologist interprets this and agrees. D-dimer negative age-adjusted. EKG on my interpretation shows a normal sinus rhythm with a ventricular rate of 74 bpm without signs of ischemia or ectopy. Patient states that he wants to follow-up with Dr. Alaniz. I did give him return precautions if he starts him back but stools./Standing. Impression: 1. Dyspnea 2. Anemia Lab Data Attestation: I reviewed the patient's lab results. Labs: Laboratory Results - last 24 hr 04/05/23 04/05/23 04/05/23 17:32 17:32 17:32 WBC 11.3 H RBC 3.97 L Hgb 10.8 L Hct 35.4 L MCV 89.2 MCH 27.2 MCHC 30.5 L RDW Std Deviation 47.7 H RDW Coeff of Mayito 14.6 Plt Count 161 MPV 10.4 Immature Gran % (Auto) 0.600 Neut % (Auto) 76.6 H Lymph % (Auto) 12.6 L Shelby % (Auto) 7.4 Eos % (Auto) 2.4 Baso % (Auto) 0.4 Absolute Neuts (auto) 8.7 H Absolute Lymphs (auto) 1.43 Nucleated RBC % 0 D-Dimer Quant (PE/DVT) Sodium 138 Potassium 4.6 Chloride 106 Carbon Dioxide 26.0 Anion Gap 6 BUN 26 H Creatinine 1.24 Estim Creat Clear Calc 53.06 Est GFR (MDRD) Af Amer 73 Est GFR (MDRD) Non-Af 61 BUN/Creatinine Ratio 21.0 H Glucose 160 H Calcium 10.1 Troponin I High Sens 11 B-Natriuretic Peptide 136.7 H 04/05/23 17:32 WBC RBC Hgb Hct MCV MCH MCHC RDW Std Deviation RDW Coeff of Mayito Plt Count MPV Immature Gran % (Auto) Neut % (Auto) Lymph % (Auto) Shelby % (Auto) Eos % (Auto) Baso % (Auto) Absolute Neuts (auto) Absolute Lymphs (auto) Nucleated RBC % D-Dimer Quant (PE/DVT) 0.63 H* Sodium Potassium Chloride Carbon Dioxide Anion Gap BUN Creatinine Estim Creat Clear Calc Est GFR (MDRD) Af Amer Est GFR (MDRD) Non-Af BUN/Creatinine Ratio Glucose Calcium Troponin I High Sens B-Natriuretic Peptide Radiography Diagnostic Testing: Clinical Impression(s) from Imaging Studies Chest X-Ray 04/05/23 17:45 IMPRESSION: 1. Elevation left hemidiaphragm with mild left basilar atelectasis. The remainder of the findings are unchanged. Electronically Signed: Agus Tilley DO at 18:02 EDT Reading Location ID and State: [address] [place] [address] Tel [phone], Service support , Discharge Plan Triage Chief Complaint: Shortness of Breath ED Provider: Jose Bustamante Dx/Rx/DC Orders Instructions: ED Anemia, Type Not Specified (Adult), ED Dyspnea Prescriptions: No Action metformin 1,000 mg tablet 1,000 mg PO BID atorvastatin [Lipitor] 40 mg tablet 40 mg PO QHS Centrum Silver Ultra Men's 300-600-300 mcg tablet 1 tab PO DAILY coenzyme Q10 [Co Q-10] 100 mg capsule 100 mg PO DAILY cholecalciferol (vitamin D3) 125 mcg (5,000 unit) capsule 125 mcg PO DAILY glipizide 5 mg tablet extended release 24hr 10 mg PO DAILY acetaminophen [Tylenol] 325 mg Tablet 650 mg PO Q6H PRN (Reason: Pain) ibuprofen [Motrin] 600 mg Tablet 600 mg PO Q8H PRN (Reason: Pain) doxycycline hyclate 100 mg capsule carvedilol 25 mg tablet 25 mg PO BID Qty: 180 3RF Rx Instructions: must administer with a meal/food tadalafil 5 mg tablet 5 mg PO QHS Primary Care Provider: Hao Woods Referrals: Hao Woods MD [Primary Care Provider] - Disposition Disposition: Home, Self Care
[2023-04-05 18:49] VITALS: PULSE 89; RESP 20; O2SAT 97
[2023-04-05 19:59] VITALS: BP 137/79
== END 2023-04-05 20:00 | disposition home or self-care (01) ==
PROVIDERS: Emergency Provider Student in an Organized Health Care Education/Training Program; PCP Family Medicine; Visit Provider Student in an Organized Health Care Education/Training Program
DX: R06.09 Other forms of dyspnea (principal); J44.9 Chronic obstructive pulmonary disease, unspecified; I11.0 Hypertensive heart disease with heart failure; I50.42 Chronic combined systolic (congestive) and diastolic (congestive) heart failure; I48.0 Paroxysmal atrial fibrillation; E11.9 Type 2 diabetes mellitus without complications; E78.5 Hyperlipidemia, unspecified; I25.10 Atherosclerotic heart disease of native coronary artery without angina pectoris; I25.5 Ischemic cardiomyopathy; D64.9 Anemia, unspecified; Z79.84 Long term (current) use of oral hypoglycemic drugs; Z79.899 Other long term (current) drug therapy; Z87.891 Personal history of nicotine dependence; Z86.73 Personal history of transient ischemic attack (TIA), and cerebral infarction without residual deficits
CPT/HCPCS: 71045; 80048; 83880; 84484; 85025; 85379; 93005; 99283; A4216

== ENCOUNTER 2023-04-07 11:41 | Day surgery (SDC) | payer MEDICARE, SELFPAY ==
[2023-04-07] VITALS (7 sets, daily range): BP systolic 114–145; BP diastolic 63–78; PULSE 63–70; RESP 16–20; TEMP 36.1–36.4; O2SAT 93–99; BMI 27.3
--- NOTE | 2023-04-07 | LUNG_PTH ---
PATIENT: SILVINA HORVATH LOC: EN U#:[id number] AGE/SX: 72/M ROOM: RE04/07/[address]: Dr. Aneesh Alaniz MD : 1950 BED: DIS: 04/07/2023 SPEC #: [id number] RECD: 04/07/23 14:10 STATUS: ANNIE RADHA #: [id number] HENRY: 04/07/23 00:[address]: Aneesh Alaniz V DEPT: SURGICAL PATHOLOGY RECD BY: Salvador Yadav ENTERED: 04/08/23 08:53 SP TYPE: LUNG BX OTHR DR: Dr. Hao Woods MD Tissues: Lung, NOS Procedures: Elastin Stain (control) Trichrome (control) Special Stain Group II Special Stain Group I Surgery Specimen Level IV AFB Stain (control) GMS Stain (control) Retic (control) HEADER OPERATION: Bronchoscopy (MAC) with wash and biopsy, brushings PRE-OP DIAGNOSIS: Solitary pulmonary nodule TISSUE SUBMITTED: Left upper lobe MICROSCOPIC DIAGNOSIS Left upper lobe lung, biopsy: Fragments of lung parenchymal tissue and bronchial mucosal tissue with congestion, hemorrhage and focal interstitial fibrosis. Negative for malignancy. See comment. SCARLET:alfred 04/09/2023 COMMENT Special stains for acid fast bacilli and fungi are negative for organisms; matched controls are appropriate. Reticulin, elastin and trichrome stain are also used in the evaluation of the specimen; matched controls are appropriate. Please also refer to additional cytology specimen [id number]. MICROSCOPIC DESCRIPTION Slides are reviewed. GROSS DESCRIPTION Received in fixative is one container labeled with the patient's name and designated left upper lobe biopsy. The specimen consists of multiple fragments of pink hemorrhagic soft tissue that in aggregate measure 0.8 x 0.2 x 0.1 cm. The specimen is totally submitted in one cassette. / SCARLET:alfred 04/08/2023 TC:5 CPT: 46991, 09082 x3, 67601 x2
--- NOTE | 2023-04-07 | FLU_PTH ---
PATIENT: SILVINA HORVATH LOC: EN U#:[id number] AGE/SX: 72/M ROOM: RE04/07/[address]: Dr. Aneesh Alaniz MD : 1950 BED: DIS: 04/07/2023 SPEC #: [id number] RECD: 04/07/23 14:10 STATUS: ANNIE RADHA #: [id number] HENRY: 04/07/23 00:[address]: Aneesh Alaniz V DEPT: CYTOLOGY RECD BY: Salvador Yadav ENTERED: 04/08/23 08:57 SP TYPE: Fluid OTHR DR: Dr. Hao Woods MD Tissues: A - Bronchus of left upper lobe B - Bronchus of left upper lobe C - Bronchus of left upper lobe Procedures: Special Stain Group II Special Stain Group I Surgery Specimen Level IV AFB Stain (control) GMS Stain (control) Cytospin Fluid HEADER OPERATION: Bronchoscopy (MAC) with wash and biopsy, brushings PRE-OP DIAGNOSIS: Solitary pulmonary nodule TISSUE SUBMITTED: A - BAL fluid, B - [place] left upper lobe fluid, C - Left upper lobe brushings x5 slides DIAGNOSIS CYTOLOGY A. BAL fluid (cytospin and cell block): Negative for malignant cells. See comment. B. [place] left upper lobe fluid (cytospin and cell block): Negative for malignant cells. C. Left upper lobe brushings (smears): Negative for malignant cells. SJ:alfred 04/09/2023 COMMENT A. Special stains for acid fast bacilli and fungi are negative for organisms; matched controls are appropriate. Correlation with clinical, radiologic findings and appropriate follow up are necessary. Please also refer to additional specimen ([id number]), left upper lobe lung biopsy. CYTOLOGY STUDY Slides are reviewed. CYTOLOGY GROSS A - Received is 40 ml of cloudy red fluid labeled with the patient's name and and designated per the requisition as BAL. Submitted for cytology preparation including cell block. B - Received is a metallic endoscopic cytobrush with adherent minute fragments of melendez-red tissue brush in 2 ml of clear red fluid and labeled with the patient's name and and designated per the requisition as brush [place]. The material is dislodged from the brush and submitted for cytology preparation including cell block. C - Received are five smears labeled with the patient's name and designated per the requisition as [place]. Submitted for staining. / alfred 04/08/2023 TC:5 CPT: 31175 x2, 21617 x2, 44898, 18395 x2
--- NOTE | 2023-04-07 11:41 | CT_ITS ---
STUDY: CTA CHEST REASON FOR EXAM: Male, 72 years old. CHEST PAIN RADIATION DOSAGE (If Supplied By Facility): CTDIvol = ( 7.38 ) mGy, DLP = ( 409.66 ) mGycm TECHNIQUE: The examination was performed with the intravenous administration of IV 100mL Isovue-370. Post-processing of the angiographic images was performed, with multiplanar reformation and 3D reconstruction. Individualized dose optimization techniques were used for this CT. COMPARISON: Comparison is made with prior CT scan of the thorax dated January 29, 2023. FINDINGS: Normal enhancement of the main pulmonary artery and right and left pulmonary arteries. Normal enhancement of the bilateral peripheral pulmonary arteries. There is no demonstrated pulmonary embolism. Normal thoracic aorta and visualized great vessels. There is no demonstrated aortic dissection. Sternal cerclage wires and vascular clips are present from a prior sternotomy and coronary artery bypass graft procedure (CABG). There are calcifications of the coronary arteries. Hypodense rounded soft tissue masses in the left side of the superior mediastinum suggestive of possible necrotic lymph nodes. Rounded soft tissue densities are also seen in the left side of the mediastinum superiorly as seen on axial image #200. Left hilar mass in keeping with the adenopathy. Normal visualized trachea and bronchi. 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 There is evidence of a 2.1 cm x 2.4 cm necrotic mass in the posterior aspect of the left upper lobe. A similar-appearing necrotic mass is seen abutting the left major fissure in the posterior aspect of the left upper lobe. Small left pleural effusion with left basilar infiltration and/or atelectasis. Normal pleura. Normal chest wall structures. There are degenerative changes of thoracic spine. Normal visualized upper abdomen. 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 Cavitary lesions in the left upper lobe. Neoplastic process should be ruled out. Small left pleural effusion. Electronically Signed: Antony Armendariz MD at 14:36 EDT ,
[2023-04-07 11:42] LABS: Erythrocyte Sedimentation Rate 25 mm/hr (0-20)
[2023-04-07] MEDS: Lidocaine Jelly 2% 20 ML Syringe (URO-JET) 1 APPLIC (11:47)
[2023-04-07 11:57] LABS: Microalbumin:Creatinine Ratio 114.5 mg/g CRE (<30 mg/g CRE)
[2023-04-07 11:58] LABS: Hemoglobin A1c 7.1 % (3.8-5.6)
[2023-04-07] MEDS: Lactated Ringers 1,000 ML 15 ML IV (12:32)
[2023-04-07 12:53] LABS: Bedside Glucose 153 mg/dL (74-106)
[2023-04-07] MEDS: Phenylephrine 0.25% 15 ML NASAL.SRY 15 SPRAY NASAL (13:18)
[2023-04-07] MEDS: Lidocaine 2% (5ml sdv) 5 ML VIAL.MPF (13:46)
--- NOTE | 2023-04-07 13:57 | OP.BRONCH_ITS ---
Patient Name: Steve Thompson Procedure Date: 04/07/2023 1:01 PM Date of : 1950 Age: 72 Procedure: Bronchoscopy Indications: Left upper lobe mass, Hemoptysis with abnormal CXR Providers: Aneesh Alaniz MD Medicines: Lidocaine applied to nares and subglottic space, Monitored Anesthesia Care Complications: No immediate complications Procedure: Pre-Anesthesia Assessment: - A History and Physical has been performed. The patient's medications, allergies and sensitivities have been reviewed. After I obtained informed consent, the scope was passed under direct vision. Throughout the procedure, the patient's blood pressure, pulse, and oxygen saturations were monitored continuously. The bronchoscope was introduced through the right nostril and advanced to the tracheobronchial tree of both lungs. The patient tolerated the procedure well. The total duration of the procedure was 20 minutes. Findings: The nasopharynx/oropharynx appears normal. The larynx appears normal. The vocal cords appear normal. The subglottic space is normal. The trachea is of normal caliber. The bharati is sharp. The tracheobronchial tree was examined to at least the first subsegmental level. Bronchial mucosa and anatomy are normal; there are no endobronchial lesions, and no secretions. Transbronchial biopsies of a lesion were performed in the apical-posterior segment of the left upper lobe using alligator forceps and sent for cell count, bacterial culture, viral smears & culture, and fungal & AFB analysis and cytology and histopathology examination. The procedure was guided by fluoroscopy. Transbronchial biopsy technique was selected because the sampling site was not visible endoscopically. Eight biopsy passes were performed. Eight biopsy samples were obtained. Bronchoalveolar lavage was performed in the [place] apical posterior segments (B1 & B2) of the lung and sent for aerobic culture, AFB analysis & culture and fungal analysis. 120 mL of fluid were instilled. 40 mL were returned. The return was blood-tinged. There were no mucoid plugs in the return fluid. [Multi samples]. Fluoroscopy guided transbronchial brushings of a lesion were obtained in the apical-posterior segment of the left upper lobe with a cytology brush and sent for cell count, bacterial culture, viral smears & culture, and fungal & AFB analysis and cytology. One sample was obtained. Impression: - Left upper lobe mass - Hemoptysis with abnormal CXR - The airway examination was normal. - Transbronchial lung biopsies were performed. - Bronchoalveolar lavage was performed. - Transbronchial brushings were obtained. - Normal tracheobronchial tree. Recommendation: - Await test results. - Await test results. MD Aneesh Nichols MD 04/07/2023 1:57:16 PM This report has been signed electronically. Number of Addenda: 0 Note Initiated On: 04/07/2023 1:01 PM
[2023-04-07 14:00] LABS: AST(SGOT) 12 U/L (15-37); Alanine Aminotransfer ALT/SGPT 14 U/L (16-61); Albumin, Serum 3.2 g/dL (3.2-5.0); Alkaline Phosphatase 82 U/L (45-117); Anion Gap 5 (5-15); BUN 20 mg/dL (7-18); BUN/Creat Ratio 16.4 RATIO (10-20); Bilirubin, Direct 0.16 mg/dL (0.00-0.30); CRP 8.53 mg/L (0.0-3.0); Calcium,Total 10.1 mg/dL (8.5-10.1); Chloride 106 mmol/L (98-107); Cholesterol 124 mg/dL (200); Creatinine, Serum 1.22 mg/dL (0.70-1.30); EST Glomerular Filtration Rate 62 mL/min (>60); Est Glom Filt Rate - Afr Amer 75 mL/min (>60); Estimated Creatinine Clearance 53.93 ml/min; Globulin 3.8 g/dL (2.2-4.2); Glucose 197 mg/dL (74-106); High Density Lipoprotein 36 mg/dL; Phosphorus 2.5 mg/dL (2.5-4.9); Potassium 4.8 mmol/L (3.5-5.1); Sodium Level 136 mmol/L (136-145); Triglycerides 149 mg/dL; Very Low Density Lipoprotein 30 mg/dL (5-40)
[2023-04-07 14:08] LABS: Cytology, Body Fluid / CSF SEE PATHOLOGY REPORT
[2023-04-08 13:07] LABS: ANTINUCLEAR ANTIBODIES DIRECT Negative (Negative)
[2023-04-08 15:08] LABS: Cytoplasmic Ab (C-ANCA) <1:20 titer (Neg:<1:20); Perinuclear Ab (P-ANCA) <1:20 titer (Neg:<1:20)
== END 2023-04-07 14:44 | disposition home or self-care (01) ==
LOC: EN 12:01 → AC 12:02
PROVIDERS: PCP Family Medicine; Referring Provider Internal Medicine Pulmonary Disease; Visit Provider Internal Medicine Pulmonary Disease
PROC: 0BJ08ZZ Inspection of Tracheobronchial Tree, Via Natural or Artificial Opening Endoscopic (ICD-10-PCS; CPT 31622; principal; 2023-04-07 12:45)
DX: J84.10 Pulmonary fibrosis, unspecified (principal); E11.29 Type 2 diabetes mellitus with other diabetic kidney complication; I48.0 Paroxysmal atrial fibrillation; R04.2 Hemoptysis; R05.9 Cough, unspecified; R06.09 Other forms of dyspnea; Z79.01 Long term (current) use of anticoagulants; Z79.84 Long term (current) use of oral hypoglycemic drugs; Z79.899 Other long term (current) drug therapy; R91.1 Solitary pulmonary nodule; I10 Essential (primary) hypertension; Z79.891 Long term (current) use of opiate analgesic; I25.10 Atherosclerotic heart disease of native coronary artery without angina pectoris; Z95.1 Presence of aortocoronary bypass graft; Z95.2 Presence of prosthetic heart valve; Z79.82 Long term (current) use of aspirin; R93.89 Abnormal findings on diagnostic imaging of other specified body structures; R04.89 Hemorrhage from other sites in respiratory passages; E78.5 Hyperlipidemia, unspecified; I25.2 Old myocardial infarction; Z95.4 Presence of other heart-valve replacement; Z79.890 Hormone replacement therapy; R07.9 Chest pain, unspecified
CPT/HCPCS: 31624; 31628; 31623; 71275; 76000; 80048; 80061; 80076; 82043; 82570; 82962; 83036; 84100; 85652; 86038; 86140; 86256; 86431; 87015; 87070; 87101; 87116; 87205; 87206; 88108; 88305; 88312; 88313; J7120; Q9967; A4216; J2405

== ENCOUNTER → 2023-04-07 | Outpatient (CLI) | payer MEDICARE, SELFPAY | END | disposition home or self-care (01) | PROVIDERS: PCP Family Medicine; Referring Provider Internal Medicine Pulmonary Disease; Visit Provider Internal Medicine Pulmonary Disease | DX: R06.02 Shortness of breath (principal); R04.2 Hemoptysis; R07.9 Chest pain, unspecified ==

== ENCOUNTER → 2023-04-21 | Outpatient (CLI) | payer MEDICARE, SELFPAY ==
--- NOTE | 2023-04-21 15:39 | MRI_ITS ---
STUDY: MRI BRAIN WITH AND WITHOUT CONTRAST REASON FOR EXAM: Male, 72 years old. likely lung cancer on PET, repeat bx to confirm -- brain MRI to r/o mets TECHNIQUE: Standardized multiplanar fat and water weighted pulse sequences were obtained. IV Clariscan 15ml was administered for the contrast portion of the examination. COMPARISON: None. FINDINGS: Normal size of the ventricles and extra-axial spaces for the patient''s age. Mild periventricular white matter ischemic change without mass effect or restricted diffusion.. There is a large area of gliosis in the right frontal parietal region with encephalomalacia most consistent with old infarct. There is no enhancement to suggest neoplastic lesion. Normal bilateral basal ganglia. Normal thalami. There is no extra-axial fluid accumulation. Normal flow voids within the major intracranial circulation suggesting patency by spin echo criteria. Normal venous enhancement. There is no enhancing intra-axial or extra-axial abnormality. Normal sella turcica, pituitary gland, infundibular stalk, optic chiasm and hypothalamus. Normal tectal plate and pineal gland. Normal midbrain, srinivasa and medulla. Normal cerebellum. Normal basal cisterns. Normal bilateral temporal bones. Normal bilateral internal auditory canals. No demonstrated orbital abnormality, within the constraints of a routine brain study. Normal visualized paranasal sinuses. Normal calvarium and skull base. Normal visualized soft tissue structures. Normal visualized upper cervical spine. MRI/Brain W/WO Contrast IMPRESSION: Mild atrophy and periventricular white matter ischemic changes without evidence for acute infarct. Old right frontal parietal infarct. No evidence for metastatic disease Electronically Signed: Buddy Corral MD at 17:51 EDT ,
== END | disposition home or self-care (01) ==
PROVIDERS: PCP Family Medicine; Referring Provider Student in an Organized Health Care Education/Training Program; Visit Provider Student in an Organized Health Care Education/Training Program
DX: C34.92 Malignant neoplasm of unspecified part of left bronchus or lung (principal)
CPT/HCPCS: 70553; A9575

== ENCOUNTER 2023-04-23 10:57 | Day surgery (SDC) | payer MEDICARE, SELFPAY ==
--- NOTE | 2023-04-21 08:03 | PCM.HP.STD ---
[facility] - [facility] General Date of Service: 04/23/23 [facility] Narrative The patient is a 72-year-old male who presented to the pulmonary medicine clinic on April 20 for the evaluation of a hilar lung mass. The patient has been under the care of Dr. Alaniz due to the presence of a lung mass. There is documentation that the patient has a history of COPD and prior tobacco dependency. In January [address] chest without contrast was performed which demonstrated a 1.2 cm cavitary lesion in the posterior aspect of the left upper lobe. CTA chest from March 2023 demonstrated a 2.7 cm x 3 cm irregular mass in the left suprahilar region. The patient subsequently underwent bronchoscopy with transbronchial biopsies, BAL and Cytobrush sampling in March 2023. There was no evidence of malignancy from those samples. The patient has lost approximately 25 pounds over the course of the last few months as well. He denied any episodes of gaviota hemoptysis. He has also been experiencing vocal hoarseness for the last month. The patient is a former smoker, having quit completely in October 2018. Recent PET scan was just completed on April 13, 2023 and demonstrated increased uptake in the left upper lung field along with increased uptake in the anterior, middle mediastinum and left thoracic perihilar region. The patient has already been evaluated by radiation oncology and has an upcoming appointment with Dr. Stewart of oncology. [facility] Medical History (Updated 04/20/23 @ 12:09 by Alison Maynard) Anemia Arthritis Atherosclerotic heart disease of [place] coronary artery without angina pectoris Back pain Cancer Cardiology follow-up encounter Chronic combined systolic and diastolic CHF (congestive heart failure) Chronic cough COPD (chronic obstructive pulmonary disease) COVID Diabetes Dietary restriction Difficulty swallowing Essential (primary) hypertension Former smoker History of CVA (cerebrovascular accident) History of echocardiogram History of non-ST elevation myocardial infarction (NSTEMI) (06/15/14) History of stress test Hyperlipidemia Ischemic cardiomyopathy Leg cramps Loss of hearing Low iron Nonrheumatic aortic (valve) stenosis Nonrheumatic mitral (valve) insufficiency Paroxysmal atrial fibrillation Prostate disease Prosthetic aortic valve stenosis Shortness of breath on exertion Syncope Wears dentures Wears glasses Home Medications atorvastatin 40 mg tablet (Lipitor) 40 mg PO QHS 06/26/20 [History Last Taken Unknown] coenzyme Q10 100 mg capsule (Co Q-10) 100 mg PO DAILY 06/26/20 [History Last Taken Unknown] metformin 1,000 mg tablet 1,000 mg PO BID 06/26/20 [History Last Taken Unknown] [id number]-fy-[id number] 300 mcg-K 60 mcg-lycop 600 mcg-lutein 300 mcg tablet (Centrum Silver Ultra Men's) 1 tab PO DAILY 06/26/20 [History Last Taken Unknown] carvedilol 25 mg tablet 25 mg PO BID #180 tabs 08/03/22 [Rx Last Taken 04/07/23] cholecalciferol (vitamin D3) 125 mcg (5,000 unit) capsule 125 mcg PO DAILY 03/16/23 [History Last Taken Unknown] glipizide 5 mg tablet, extended release 24 hr 10 mg PO DAILY 03/16/23 [History Last Taken Unknown] tadalafil 5 mg tablet 5 mg PO QHS prostate hypertrophy 03/17/23 [History Last Taken Unknown] acetaminophen 325 mg tablet (Tylenol) 650 mg PO Q6H PRN Pain 04/05/23 [History Last Taken Unknown] doxycycline hyclate 100 mg capsule 100 mg PO DAILY 04/05/23 [History Last Taken Unknown] ibuprofen 600 mg tablet 600 mg PO Q8H PRN Pain 04/05/23 [History Last Taken Unknown] dexamethasone 4 mg tablet 4 mg PO BID 04/14/23 [History Last Taken Unknown] acetaminophen 300 mg-codeine 30 mg tablet 2 tab PO QHS 04/20/23 [History Last Taken Unknown] Allergy/AdvReac Type Severity Reaction Status Date / Time LORENE Inhibitors Allergy Intermediate renal Verified 04/20/23 11:58 insufficiency amiodarone Allergy Intermediate renal Verified 04/20/23 11:58 insufficiency Family History Grandfather Heart disease Other Cancer Surgical History H/O coronary artery bypass surgery (06/19/14) History of aortic valve replacement with tissue graft (06/19/14) History of arthroscopy of left knee History of cardioversion (02/23/17) History of mitral valve repair (06/19/14) History of right and left heart catheterization (06/15/14) History of right-sided carotid endarterectomy Male circumcision Social History household members: spouse Smoking Status: Former smoker quit date: 06/08/14 pack-years: 77 how long ago did patient quit smoking: October 2017 alcohol intake: current alcohol intake frequency: a few times a month caffeine: Yes Type: coffee Number of servings: 2 ROS ROS Narrative 10 systems were reviewed with pertinent positives as noted in the HPI above. Physical Exam Const alert and no apparent distress General Appearance: cooperative HEENT normocephalic and head/scalp atraumatic Eyes PERRL and EOMs intact bilaterally Neck supple General: trachea midline Resp normal respiratory effort Auscultation: diminished lung sounds Cardio regular rate and regular rhythm GI normal to inspection, nondistended, normoactive bowel sounds Extremity no clubbing, cyanosis or edema Skin General Skin Exam: no breakdown Neuro no focal motor deficits and no sensory deficits noted Psych cooperative and affect normal Assessment & Plan Assessment/Plan (1) Lung mass: PLAN: The patient presented to the pulmonary medicine clinic for the evaluation of a left perihilar lung mass. The patient underwent prior bronchoscopy with transbronchial biopsies, BAL and Cytobrush sampling, which was negative for malignancy. He recently had a PET scan which revealed increased uptake in the left upper lobe lung mass along with increased uptake in the middle mediastinum and left thoracic perihilar region, concerning for malignancy. The patient is not currently on any systemic blood thinners. I discussed the possibility of moving forward with mediastinal lymph node sampling via EBUS. The risks and benefits of the proposed procedure were discussed with the patient at length. Questions were answered accordingly. The patient is in agreement to proceed.
--- NOTE | 2023-04-23 | IMM_PTH ---
PATIENT: SILVINA HORVATH LOC: EN U#:[id number] AGE/SX: 72/M ROOM: RE04/23/[address]: Dr. Jean Lucero DO : 1950 BED: DIS: 04/23/2023 SPEC #: [id number] RECD: 04/26/23 13:39 STATUS: [place]OU[place] REQ #: [id number] HENRY: 04/23/23 00:[address]: Jean Lucero DEPT: IMMUNOHISTOCHEMISTRY RECD BY: Zenaida Wright ENTERED: 04/26/23 13:41 SP TYPE: IMMUNO OTHR DR: Dr. Hao Woods MD Tissues: J - Lung, NOS Procedures: RCC (add) NAPSIN A (add) CK20 (add) CK5-6 (add) CK7 (add) CK8 (add) HEP PAR (add) TTF1 (add) Pankeratin (initial) P40 (add) PSAP (add) PHYSICIAN & [address] [address] SPECIMEN INFORMATION: Tissue Source: Chriss Schwarz EBUS, TBNA, site 4L Clinical Info: Lung mass Specimen Number: [id number] CPT code: 81090, 02741 x10 METHODOLOGY: Deparaffinized sections of prefer/formalin-fixed tissue or PAP/DQ stained slides are incubated with monoclonal/polyclonal antibodies/oligonucleotide probes. Localization is made via biotin free immunoperoxidase method. Appropriate controls are performed and reacted as expected. Results on target cell population are indicated in the following table: RESULTS: ANTIBODY / CLONE RESULT Block J AE1-3 (AE1/AE3/PCK26) positive CK7 (OV-TL12/30) positive CK8 (33yvnxY84) positive CK20 (KS20.8) negative TTF-1 (8G7G3/1) negative Napsin A (Rabbit Polyclonal) negative HepPar (OCh1E5) negative RCC (PN-15) negative PSAP (PASE/4LJ) negative CK5-6 (D5 & 1684) positive P40 (BC28) positive These tests were developed and their performance characteristics determined by [facility]. They may not have been cleared or approved by the U.S. Food and Drug Administration. The FDA has determined that such clearance or approval is not necessary. The above immunohistochemical/dualISH markers are ordered and reviewed by the Pathologist. INTERPRETATION: Nicky BETTENCOURT TBNA, site 4L (cell block): Malignant cells present derived from non-small cell carcinoma, favor squamous cell carcinoma. SJ:alfred 04/28/2023 Case has been reviewed in consultation with Dr. Diaz who concurs with the above diagnosis. IDC:AM
[2023-04-23] MEDS: Lactated Ringers 1,000 ML 15 ML IV ×2 (11:26→13:41)
[2023-04-23 11:28] VITALS: BP 119/78; PULSE 75; RESP 18; TEMP 36.4; O2SAT 94; BMI 26.9
[2023-04-23 12:03] LABS: Bedside Glucose 239 mg/dL (74-106)
--- NOTE | 2023-04-23 12:30 | ASPIG_PTH ---
PATIENT: SILVINA HORVATH LOC: EN U#:[id number] AGE/SX: 72/M ROOM: RE04/23/[address]: Dr. Jean Lucero DO : 1950 BED: DIS: 04/23/2023 SPEC #: [id number] RECD: 04/23/23 13:36 STATUS: ANNIE RETee #: [id number] HENRY: 04/23/23 12:[address]: Jean Lucero DEPT: CYTOLOGY RECD BY: Amberly Hay ENTERED: 04/23/23 13:41 SP TYPE: ASP OUT OTHR DR: Dr. Hao Woods MD Tissues: A - Lung, NOS B - Lung, NOS C - Lung, NOS D - Lung, NOS E - Lung, NOS F - Lung, NOS G - Lung, NOS H - Lung, NOS I - Lung, NOS J - Lung, NOS Procedures: FNA Specimen Adequacy Special Stain Group II Surgery Specimen Level IV Cytology Other HEADER OPERATION: Endobronchial ultrasound PRE-OP DIAGNOSIS: Lung mass TISSUE SUBMITTED: A - EBUS, TBNA, site 10L #1, B - EBUS, TBNA, site 10L #2, C - EBUS, TBNA, site 10L #3, D - EBUS, TBNA, site 10L #4, E - EBUS, TBNA, site 10L #5, F - EBUS, TBNA, site 4L #6, G - EBUS, TBNA, site 4L #7, H - EBUS, TBNA, site 4L #8, I - EBUS, TBNA, site 10L/4L, J - EBUS, TBNA, site 4L DIAGNOSIS CYTOLOGY A. EBUS, TBNA, site 10L #1 (smears): Negative for malignant cells. Acute inflammation. Respiratory epithelial cells. B. EBUS, TBNA, site 10L #2 (smears): Negative for malignant cells. Acute inflammation. Respiratory epithelial cells. C. EBUS, TBNA, site 10L #3 (smears): Predominantly respiratory epithelial cells. Rare lymphocytes. Negative for malignant cells. D. EBUS, TBNA, site 10L #4 (smears): Respiratory epithelial cells. A few neutrophils and lymphocytes noted. Negative for malignant cells. E. EBUS, TBNA, site 10L #5 (smears): Numerous lymphocytes present. Respiratory epithelial cells and neutrophils noted. Negative for malignant cells. F. EBUS, TBNA, site 4L #6 (smears): Positive for malignant cells derived from non-small carcinoma. G. EBUS, TBNA, site 4L #7 (smears): Positive for malignant cells derived from non-small carcinoma. H. EBUS, TBNA, site 4L #8 (smears): Numerous lymphocytes are noted. Respiratory epithelial cells are noted. Negative for malignant cells. I. EBUS, TBNA, site 10L/4L fluid (cell block): A few malignant cells present, highly suspicious for non-small cell carcinoma. See Cytology Study. J. EBUS, TBNA, site 4L fluid (cell block): A few malignant cells present derived from non-small cell carcinoma, favor squamous cell carcinoma. See comment. SCARLET:alfred 04/26/2023 COMMENT The specimen is evaluated at the time of procedure by Dr. Galloway. Rapid On-Site Evaluation: A. EBUS, TBNA, site 10L #1: Negative for malignant cells. Acute inflammation. Respiratory epithelial cells. B. EBUS, TBNA, site 10L #2: Negative for malignant cells. Acute inflammation. Respiratory epithelial cells. C. EBUS, TBNA, site 10L #3: Predominantly respiratory epithelial cells. Rare lymphocytes. Negative for malignant cells. D. EBUS, TBNA, site 10L #4: Respiratory epithelial cells. A few neutrophils and lymphocytes noted. Negative for malignant cells. E. EBUS, TBNA, site 10L #5: Numerous lymphocytes present. Respiratory epithelial cells and neutrophils noted. Negative for malignant cells. F. EBUS, TBNA, site 4L #6: Positive for malignant cells derived from non-small carcinoma. G. EBUS, TBNA, site 4L #7: Positive for malignant cells derived from non-small carcinoma. H. EBUS, TBNA, site 4L #8: Numerous lymphocytes noted. Rare atypical cells noted. J. Immunohistochemistry ([id number]) supports the above diagnosis. Molecular studies on the tumor can be performed if clinically indicated. Please notify the laboratory if they are needed. This case is discussed with Dr. Mcclendon on 04/28/2023. Case has been reviewed in consultation with Dr. Diaz who concurs with the above diagnosis. IDC:AM CYTOLOGY STUDY Slides are reviewed. I. The specimen predominantly consists of fragments of respiratory mucosa, lymphocytes and neutrophils. CYTOLOGY GROSS A - Received labeled with the patient's name and and designated EBUS, TBNA, site 10L #1. The specimen consists of two stained smears for KATERYNA (Rapid On-Site Evaluation). B - Received labeled with the patient's name and and designated EBUS, TBNA, site 10L #2. The specimen consists of two stained smears for KATERYNA. C - Received labeled with the patient's name and and designated EBUS, TBNA, site 10L #3. The specimen consists of two stained smears for KATERYNA. D - Received labeled with the patient's name and and designated EBUS, TBNA, site 10L #4. The specimen consists of two stained smears for KATERYNA. E - Received labeled with the patient's name and and designated EBUS, TBNA, site 10L #5. The specimen consists of two stained smears for KATERYNA. F - Received labeled with the patient's name and and designated EBUS, TBNA, site 4L #6. The specimen consists of two stained smears for KATERYNA. G - Received labeled with the patient's name and and designated EBUS, TBNA, site 4L #7. The specimen consists of two stained smears for KATERYNA. H - Received labeled with the patient's name and and designated EBUS, TBNA, site 4L #8. The specimen consists of two stained smears for KATERYNA. I - Received in RPMI is 20 ml of pink, needle rinsed fluid labeled with the patient's name and and designated EBUS, TBNA, site 10L/4L. The specimen is submitted for cell block preparation. J - Received in RPMI is 20 ml of pink, needle rinsed fluid labeled with the patient's name and and designated EBUS, TBNA, site 4L. The specimen is submitted for cell block preparation. / AM:alfred 04/23/2023 TC:0 CPT: 72983 x2, 64577 x8, 15112 x2
[2023-04-23] MEDS: Lidocaine Jelly 2% 20 ML Syringe (URO-JET) 1 APPLIC (12:41)
[2023-04-23 13:30] VITALS: BP 119/78; BP 122/78; PULSE 75; RESP 16; TEMP 37.3; O2SAT 91
--- NOTE | 2023-04-23 13:32 | OP.BRONCH_ITS ---
Patient Name: Steve Thompson Procedure Date: 04/23/2023 12:30 PM Date of : 1950 Age: 72 Procedure: Bronchoscopy Indications: Left hilar mass, Mediastinal adenopathy Providers: Jean Lucero MD Referring MD: Jean Lucero MD Medicines: See the Anesthesia note for documentation of the administered medications Complications: No immediate complications Procedure: Pre-Anesthesia Assessment: - A History and Physical has been performed. Patient meds and allergies have been reviewed. The risks and benefits of the procedure and the sedation options and risks were discussed with the patient. All questions were answered and informed consent was obtained. Patient identification and proposed procedure were verified prior to the procedure by the physician and the nurse in the procedure room. Mental Status Examination: alert and oriented. Airway Examination: normal oropharyngeal airway. Respiratory Examination: clear to auscultation. CV Examination: normal. ASA Grade Assessment: III - A patient with severe systemic disease. After reviewing the risks and benefits, the patient was deemed in satisfactory condition to undergo the procedure. The anesthesia plan was to use general anesthesia. Immediately prior to administration of medications, the patient was re-assessed for adequacy to receive sedatives. The heart rate, respiratory rate, oxygen saturations, blood pressure, adequacy of pulmonary ventilation, and response to care were monitored throughout the procedure. The physical status of the patient was re-assessed after the procedure. After I obtained informed consent, the scope was passed under direct vision. Throughout the procedure, the patient's blood pressure, pulse, and oxygen saturations were monitored continuously. The ultrasound bronchoscope was introduced through the mouth, via laryngeal mask airway and advanced to the tracheobronchial tree. The bronchoscope was introduced through the mouth, via laryngeal mask airway and advanced to the tracheobronchial tree. The procedure was accomplished without difficulty. The patient tolerated the procedure well. Findings: The laryngeal mask airway is in good position. The vocal cords appear normal. The subglottic space is normal. The trachea is of normal caliber. The bharati is sharp. The tracheobronchial tree was examined to at least the first subsegmental level. Bronchial mucosa and anatomy are normal; there are no endobronchial lesions, and no secretions. The scope was withdrawn and replaced with the EBUS bronchoscope to accomplish the ultrasound examination. Lymph Nodes: An endobronchial ultrasound endoscope was utilized to systematically examine the left lower paratracheal region (level 4L) and left hilar region (level 10L) in order to assist with guiding the biopsy needle. Lymph node sizing was performed via endobronchial ultrasound for suspected lung cancer. Sampling by transbronchial needle aspiration was also performed using an Olympus EBUS-TBNA 21 gauge needle in the left lower paratracheal region (level 4L) and left hilar region (level 10L) and sent for routine cytology. - The 10L (hilar) node was evaluated. Five samples with the needle were obtained. - The 4L (lower paratracheal) node was evaluated. Three samples with the needle were obtained. Lymph Nodes: A PET scan was found to be hypermetabolic in the left hilar region (level 10L) node. Lymph Nodes: Rapid On-Site Evaluation (KATERYNA) was performed. Preliminary cytology was suggestive of non small cell carcinoma (final results are pending) in the left lower paratracheal region (level 4L). Impression: - Left hilar mass - Mediastinal adenopathy - The airway examination was normal. - Endobronchial ultrasound was performed. - Lymph node sizing and sampling was performed. - Rapid On-Site Evaluation (KATERYNA) was performed Preliminary cytology was suggestive and of non small cell carcinoma in node level 4L (final results are pending). Recommendation: - Await biopsy results. Procedure Code(s): --- Professional --- 75409, Bronchoscopy, rigid or flexible, including fluoroscopic guidance, when performed; with endobronchial ultrasound (EBUS) guided transtracheal and/or transbronchial sampling (eg, aspiration[s]/biopsy[ies]), one or two mediastinal and/or hilar lymph node stations or structures Diagnosis Code(s): --- Professional --- R91.8, Other nonspecific abnormal finding of lung field R59.0, Localized enlarged lymph nodes R09.89, Other specified symptoms and signs involving the circulatory and respiratory systems CPT copyright 2017 [employer]. All rights reserved. The codes documented in this report are preliminary and upon keno writer review may be revised to meet current compliance requirements. DO Jean Marcano MD 04/23/2023 1:31:31 PM This report has been signed electronically. Number of Addenda: 0 Note Initiated On: 04/23/2023 12:30 PM
[2023-04-23 13:45] VITALS: BP 119/78; BP 124/71; PULSE 74; RESP 16; O2SAT 91
[2023-04-23 13:56] VITALS: BP 119/78; BP 127/70; PULSE 72; RESP 16; TEMP 37.1; O2SAT 92
[2023-04-23 14:20] VITALS: BP 119/78
[2023-04-23 14:39] LABS: Bedside Glucose 190 mg/dL (74-106)
== END 2023-04-23 14:22 | disposition home or self-care (01) ==
LOC: EN 10:58 → AC 10:59
PROVIDERS: PCP Family Medicine; Referring Provider Family Medicine; Visit Provider Internal Medicine Critical Care Medicine
PROC: BB4BZZZ Ultrasonography of Pleura (ICD-10-PCS; CPT 31652; principal; 2023-04-23 12:00)
DX: C34.92 Malignant neoplasm of unspecified part of left bronchus or lung (principal); J44.9 Chronic obstructive pulmonary disease, unspecified; I11.0 Hypertensive heart disease with heart failure; I50.42 Chronic combined systolic (congestive) and diastolic (congestive) heart failure; E11.9 Type 2 diabetes mellitus without complications; I25.10 Atherosclerotic heart disease of native coronary artery without angina pectoris; Z87.891 Personal history of nicotine dependence; E78.5 Hyperlipidemia, unspecified; R91.8 Other nonspecific abnormal finding of lung field; R59.0 Localized enlarged lymph nodes; Z79.84 Long term (current) use of oral hypoglycemic drugs
CPT/HCPCS: 31652; 00520; 82962; 88161; 88172; 88305; 88313; 88341; 88342; J7120; J2405

== ENCOUNTER 2023-05-04 05:59 | Day surgery (SDC) | payer MEDICARE, SELFPAY ==
[2023-05-04] VITALS (7 sets, daily range): BP systolic 117–130; BP diastolic 65–75; PULSE 77–78; RESP 14–18; TEMP 36.6–37.2; O2SAT 95–98; BMI 25.8
[2023-05-04] MEDS: Lactated Ringers 1,000 ML 15 ML IV (06:15)
[2023-05-04 07:06] LABS: Bedside Glucose 280 mg/dL (74-106)
[2023-05-04] MEDS: Cefazolin 2 GM in 0.9% Normal Saline 100 ML IV (07:24)
--- NOTE | 2023-05-04 07:26 | PCM.HP.BLA ---
History and Physical Date of Admission: 05/04/23 Date of Service: 04/23/23 MR#: [id number] Acct: [id number] Name: SILVINA THOMPSON Rep #: [id number] : 1950 Provider: Dr. Alexei Velazquez MD Age/Sex: 72/M Location: [facility] Status: Signed Intake Vital Signs 04/14/2313:24 04/20/2307:31 04/23/2309:24 Height 5 ft 9 in 5 ft 8 in 5 ft 8 in Weight: 178 lb BMI 27.0 BP 123/83 H Blood Pressure Location Rt brachial Position Sitting Respiration 17 Pulse 78 Pulse Source Monitor Temp 97.5 F L Temp Source Temporal Pulse Oximetry (%) 92 Oxygen Delivery Method room air Intake Visit Reasons: PORT PLACEMENT Chief Complaint: port placement Is patient in pain?: No Allergies LORENE Inhibitors Allergy (Intermediate, Verified 04/23/23 09:25) renal insufficiencyamiodarone Allergy (Intermediate, Verified 04/23/23 09:25) renal insufficiency Medications atorvastatin 40 mg tablet (Lipitor) 40 mg PO QHS 06/26/20 [History Confirmed 04/23/23] coenzyme Q10 100 mg capsule (Co Q-10) 100 mg PO DAILY 06/26/20 [History Confirmed 04/23/23] metformin 1,000 mg tablet 1,000 mg PO BID 06/26/20 [History Confirmed 04/23/23] uulxgdki-kr-iiktz 300 mcg-K 60 mcg-lycop 600 mcg-lutein 300 mcg tablet (Centrum Silver Ultra Men's) 1 tab PO DAILY 06/26/20 [History Confirmed 04/23/23] carvedilol 25 mg tablet 25 mg PO BID #180 tabs 08/03/22 [Rx Confirmed 04/23/23] cholecalciferol (vitamin D3) 125 mcg (5,000 unit) capsule 125 mcg PO DAILY 03/16/23 [History Confirmed 04/23/23] glipizide 5 mg tablet, extended release 24 hr 10 mg PO DAILY 03/16/23 [History Confirmed 04/23/23] tadalafil 5 mg tablet 5 mg PO QHS prostate hypertrophy 03/17/23 [History Confirmed 04/23/23] acetaminophen 325 mg tablet (Tylenol) 650 mg PO Q6H PRN Pain 04/05/23 [History Confirmed 04/23/23] doxycycline hyclate 100 mg capsule 100 mg PO DAILY 04/05/23 [History Confirmed 04/23/23] ibuprofen 600 mg tablet 600 mg PO Q8H PRN Pain 04/05/23 [History Confirmed 04/23/23] dexamethasone 4 mg tablet 4 mg PO BID 04/14/23 [History Confirmed 04/23/23] acetaminophen 300 mg-codeine 30 mg tablet 2 tab PO QHS 04/20/23 [History Confirmed 04/23/23] PFSH Medical History Anemia Arthritis Atherosclerotic heart disease of [place] coronary artery without angina pectoris Back pain Cancer Cardiology follow-up encounter Chronic combined systolic and diastolic CHF (congestive heart failure) Chronic cough COPD (chronic obstructive pulmonary disease) COVID Diabetes Dietary restriction Difficulty swallowing Essential (primary) hypertension Former smoker History of CVA (cerebrovascular accident) History of echocardiogram History of non-ST elevation myocardial infarction (NSTEMI) (06/15/14) History of stress test Hyperlipidemia Ischemic cardiomyopathy Leg cramps Loss of hearing Low iron Nonrheumatic aortic (valve) stenosis Nonrheumatic mitral (valve) insufficiency Paroxysmal atrial fibrillation Prostate disease Prosthetic aortic valve stenosis Shortness of breath on exertion Syncope Wears dentures Wears glasses Surgical History H/O coronary artery bypass surgery (06/19/14) History of aortic valve replacement with tissue graft (06/19/14) History of arthroscopy of left knee History of cardioversion (02/23/17) History of mitral valve repair (06/19/14) History of right and left heart catheterization (06/15/14) History of right-sided carotid endarterectomy Male circumcision Family History Grandfather Heart diseaseOther Cancer Social History household members: spouse Smoking Status: Former smoker quit date: 06/08/14 pack-years: 77 how long ago did patient quit smoking: October 2017 alcohol intake: current alcohol intake frequency: a few times a month caffeine: Yes Type: coffee Number of servings: 2 HPI HPI HPI: Patient is a 72-year-old male who presents for consideration of port placement. Patient was diagnosed with lung mass in Dorothy of this year, but transbronchial biopsies were initially negative for malignancy. He has been followed with CT imaging of the chest as well as PET scan and both appear to show progression of a malignant process. He has met with Dr. Lucero of [facility] and is pending a EBUS procedure later today for an additional attempt at obtaining tissue for diagnosis. They have not yet met with oncology, but there are tentative plans are to begin chemotherapy next month after a meeting with radiation oncology. Mr. Thompson reports a lengthy use of tobacco and states that he presented to medical attention in January on the account of a new cough productive of bloody sputum. Patient has no prior history of central line placement. Patient has no pacemaker or intracardiac defibrillator, but did have a three-vessel CABG and valve repair in 2013. He states this procedure was uncomplicated apart from a reaction to a medication (not otherwise specified). Patient has no renal dysfunction and I am not on hemodialysis. Mr. Thompson currently taking blood thinner medications. ROS General General: Yes weight change and fatigue; No appetite, colon cancer, breast cancer or weakness HEENT HEENT: No difficulty swallowing, eye injury, eye surgery, swollen glands or hoarseness Endo Endocrine: Yes diabetes mellitus; No thyroid disease, thyroid cancer, Hair loss, heat intolerance or cold intolerance Skin Skin: No rash or changing moles Musc Musculoskeletal: Yes back problems and arthritis; No rheumatoid arthritis, gout or joint pain Cardio Cardiovascular: No murmur, pacemaker, heart disease, atrial fibrillation, high blood pressure, heart attack, heart stent, palpitations, shortness of breat with exertion or chest pain Additional Details: h/o a-fib, h/o triple by pass with pig valve. Psych Psychiatric: No depression, anxiety or hearing voices Resp Respiratory: No shortness of breath, No sleep apnea, No cough, No COPD, No asthma, No emphysema and No wheezing Gastro Gastrointestinal: Yes abdominal pain, No nausea or vomiting, No diarrhea, No constipation, No blood in stool, Yes acid reflux, No hemorrhoids, No ulcers, No gallbladder problem and No black,tarry stools Ollie Hematologic: No blood thinners, No blood disorders, No bleeding, No anemia and No blood clots Additional Details: Has not been taking his eliqius. Neuro Neurologic: No system reviewed and no additional complaints, except as documented, No as per HPI, No abnormal gait, No abnormal hearing, No abnormal movements, No abnormal speech, No behavioral changes, No burning sensations, No confusion, No convulsions, No disequilibrium, No dizziness, No localized weakness, No frequent falls, No headache(s), No lack of coordination, No loss of vision, No memory loss, No numbness, No other visual disturbances, No radicular pain, No restless legs, No sensory deficit, No syncope, No tingling, No tremor(s), No weakness and No other Exam Const General: cooperative and anxious Orientation: alert, awake and oriented x3 Neck Other: Patient with a benign-appearing nevus at the base of his right neck but no scars. There is a oblique scar approximately 4 cm in length at the base of his left neck/upper chest which she states was left over from a mole excision. Resp Effort & Inspection: normal respiratory effort Other: Patient with persistent dry cough throughout our encounter Assessment and Plan Assessment and Plan (1) Lung mass: Status: Acute Comment: This is a 72-year-old male who has been diagnosed with a left-sided lung mass that is highly suspicious for primary lung cancer, however, to date he has not had biopsy positivity. He is currently pending EBUS with pulmonary medicine later today. A port has been requested as soon as possible to begin adjuvant therapy. Find no contraindications for his port placement based on patient's history and patient will be scheduled for procedure as an outpatient. I did discuss with him the need to maintain absolute sterility when port is accessed and provided post procedure expectations of wound healing and port management. Plan: Plan for outpatient port placement (right versus left) via ultrasound-guided approach at first mutually available date I have examined the patient the following changes are noted: Patient underwent EBUS following our clinic visit on 04/23/2023 and was found to have cytology consistent with non-small cell carcinoma?squamous cell suspected. Neither patient nor spouse have any questions related to today's procedure, plan is to leave the port access for chemotherapy later today. Proceed to the operating room for right versus left ultrasound-guided internal jugular port placement.
[2023-05-04] MEDS: Bupivacaine Mpf 0.5% 30 ML VIAL (08:24)
--- NOTE | 2023-05-04 08:40 | OP.PCM_ITS ---
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 There the patient was administered preoperative antibiotics and positioned supine on the operating room table. Once sedation was begun, the upper chest and lower cervical region were prepped and draped in usual sterile fashion. A formal timeout was then conducted to confirm both the patient and procedure. Ultrasound was used to localize the right internal jugular vein. Then a wheal of 0.5% bupivacaine was raised superficially in this location and the vein was accessed under direct ultrasound guidance using a Seldinger technique and micro access kit to place a guidewire. The position of the guidewire was confirmed with fluoroscopy. The micro access guidewire was exchanged for standard 035 guidewire using provided sheath. Next the position of the port pocket was determined and again local anesthetic was used to anesthetize the area of both the pocket and the tunneling cephalad. A transverse incision 3 cm in width was made down through the subcutaneous tissue. Selective electrocautery was used to obtain hemostasis. Then with blunt dissection the port pocket was developed. The catheter was connected to the tunneler and was tunneled up to the position of the guidewire. Here the dilator and peel-away sheath were placed over the guidewire under fluoroscopy and the guidewire was removed. The catheter was then fed into the sheath and slowly the sheath was peeled away as the catheter was inserted fully into the neck. The catheter length was determined by the tip position in relation to the bharati and the cavoatrial junction. Back in the chest the excess catheter was trimmed and the port was connected to the catheter. The port was tied into the pocket using 2-0 Prolene. Function was then tested using sterile saline on a Conway needle. It was locked with 3 mL of heparinized saline (concentration 50U/5mL). The port pocket was closed with a deep dermal stitch using a running 3-0 Vicryl followed by 4-0 Monocryl subcuticular stitch. The 1 cm incision in the neck was closed with a single interrupted subcuticular stitch using 4-0 Monocryl. Dermabond was applied as a dressing. Patient was then aroused from the sedation and taken to PACU for ongoing recovery were a portable chest x-ray was obtained to confirm port positioning and exclude any pneumothorax. Grafts/Implants Used: PowerPort ISP MRI implantable port (8 Fr) [id number], LOT [id number] Admit VTE Documentation VTE Mechan Device Prophylaxis: SCD's Procedures Cardiovascular CF Procedures 33xxx-39xxx: [id number] Insert tunneled cv cath
--- NOTE | 2023-05-04 08:44 | RAD_ITS ---
STUDY: X-RAY CHEST REASON FOR EXAM: Male, 72 years old. Status post line placement TECHNIQUE: Single AP portable view of the chest. COMPARISON: Comparison is made with prior study dated April 05, 2023. FINDINGS: A right-sided pricila catheter has been placed. The tip is at the junction of the superior vena cava and right atrium. Since prior study, there is been progressive the infiltration in the medial left upper lobe and left suprahilar region. Increased markings at the left lung base with blunting of the left costophrenic angle. Sternal cerclage wires are present from a prior sternotomy. Prior mitral valve replacement. Normal mediastinum and dima. Normal visualized pulmonary arteries. There is atherosclerotic tortuosity of the aortic arch and descending thoracic aorta. Normal visualized thoracic spine. Normal visualized ribs, clavicles, and shoulders. There is no demonstrated abnormality of the visualized soft tissue structures of the upper abdomen. RAD/CXR for Line Placement IMPRESSION: The tip of the right-sided pricila catheter is at the junction of the superior vena cava and right atrium. Progressive infiltration in the left lung as described with blunting of the left costophrenic angle. Electronically Signed: Antony Armendariz MD at 9:25 EDT ,
--- NOTE | 2023-05-04 08:56 | DCINST_ITS ---
Discharge Instructions Diet Discharge Diet: No restrictions Activity Discharge Activity: May Shower May shower in (days): 1 Ice area for (Minutes): 20 Additional Activity Instructions:: Limit the activity by the nearest upper extremity for 48 hours postop Dressing / Incision Call your doctor if your incision/area has: Increased Pain/ Swelling, Increased Redness, Foul Smelling Discharge and Swelling at the incision site Call your doctor if you observe: Fever of 101 or Higher Remove Dressing in: do not remove dressing (Dermabond (surgical glue) expected to dissolve spontaneously within 7 to 10 days postop using regular showering) Cleanse incision/area with: Soap & Water Follow Up Care Test Results: Test results from this visit will be discussed in further detail at your follow- up appointment, if applicable. Discharge Plan Admission Primary Reason for Your Visit: Port placement Attending Provider: Alexei Velazquez Primary Care Provider: Hao Woods Discharge Orders/Prescriptions Prescriptions: No Action metformin 1,000 mg tablet 1,000 mg PO BID atorvastatin [Lipitor] 40 mg tablet 40 mg PO QHS Centrum Silver Ultra Men's 300-600-300 mcg tablet 1 tab PO DAILY coenzyme Q10 [Co Q-10] 100 mg capsule 100 mg PO DAILY cholecalciferol (vitamin D3) 125 mcg (5,000 unit) capsule 125 mcg PO DAILY glipizide 5 mg tablet extended release 24hr 10 mg PO DAILY dexamethasone 4 mg tablet 4 mg PO BID acetaminophen-codeine 300-30 mg tablet 1 tab PO DAILY PRN albuterol sulfate [Ventolin HFA] 90 mcg/actuation HFA aerosol inhaler 2 puff inhalation Q4H PRN (Reason: shortness of breath or wheezing) Qty: 18 6RF albuterol sulfate 2.5 mg /3 mL (0.083 %) solution for nebulization 2.5 mg inhalation Q4H PRN (Reason: Sob &/Or Wheezing) Qty: 180 6RF acetaminophen [Tylenol] 325 mg Tablet 650 mg PO Q6H PRN (Reason: Pain) ibuprofen [Motrin] 600 mg Tablet 600 mg PO Q8H PRN (Reason: Pain) doxycycline hyclate 100 mg capsule 100 mg PO DAILY carvedilol 25 mg tablet 25 mg PO BID Qty: 180 3RF Rx Instructions: must administer with a meal/food tadalafil 5 mg tablet 5 mg PO QHS Referrals / Follow Up: Hao Woods MD [Primary Care Provider] - Disposition Disposition (needs filled in before D/C Order can be placed): Home, Self Care
== END 2023-05-04 10:03 | disposition home or self-care (01) ==
LOC: SDC 06:02 → AC 06:05
PROVIDERS: PCP Family Medicine; Referring Provider Surgery; Visit Provider Surgery
PROC: (CPT 36561; principal; 2023-05-04 07:15)
DX: Z45.2 Encounter for adjustment and management of vascular access device (principal); C77.1 Secondary and unspecified malignant neoplasm of intrathoracic lymph nodes; C34.92 Malignant neoplasm of unspecified part of left bronchus or lung; J44.9 Chronic obstructive pulmonary disease, unspecified; I11.0 Hypertensive heart disease with heart failure; I50.42 Chronic combined systolic (congestive) and diastolic (congestive) heart failure; I48.0 Paroxysmal atrial fibrillation; E11.9 Type 2 diabetes mellitus without complications; R91.8 Other nonspecific abnormal finding of lung field; I25.10 Atherosclerotic heart disease of native coronary artery without angina pectoris; E78.5 Hyperlipidemia, unspecified; I25.5 Ischemic cardiomyopathy; Z79.84 Long term (current) use of oral hypoglycemic drugs; Z79.899 Other long term (current) drug therapy; Z87.891 Personal history of nicotine dependence; Z86.16 Personal history of COVID-19
CPT/HCPCS: 36561; 71045; 77001; 77386; 82962; J7050; J7120; J9045; A4216; C1788; J2405; J3490; J9267

== ENCOUNTER → 2023-05-31 | Outpatient (CLI) | payer MEDICARE, SELFPAY ==
--- NOTE | 2023-06-01 08:06 | PFT ---
INTRODUCTION: The patient is a 72-year-old male who presents for pulmonary function studies secondary to a diagnosis of dyspnea. Respiratory therapy reported that the patient struggled with fatigue and cough throughout testing. Bronchodilators were used during testing. INTERPRETATION: Forced expiration spirometry demonstrates the presence of a mild large airways obstructive ventilatory impairment. There was no significant response to aerosolized bronchodilators. Spirograms are of fair quality but do not plateau indicating slow emptying of the lungs. Body plethysmography was performed and revealed an elevated RV to 135% of predicted, indicative of underlying air trapping. Diffusing capacity by single breath CO was reduced at 41% of predicted. IMPRESSION: Irreversible mild large airways obstructive ventilatory defect with associated air trapping and disproportionate reduction in diffusing capacity.
== END | disposition home or self-care (01) ==
PROVIDERS: PCP Family Medicine; Referring Provider Nurse Practitioner Acute Care; Visit Provider Nurse Practitioner Acute Care
DX: R06.09 Other forms of dyspnea (principal)
CPT/HCPCS: 94060; 94726; 94729